=== PATIENT | female | born 1970 | race Caucasian/White ===

== ENCOUNTER 2025-01-01 20:59 | Inpatient (IN) | payer OTHER, SELFPAY ==
[2025-01-01 11:04] VITALS: BP 135/93
[2025-01-01 11:42] LABS: ALT (SGPT) 25 U/L (0-35); AST (SGOT) 22 U/L (14-36); Albumin 3.8 g/dl (3.5-5.0); Alkaline Phosphatase 105 U/L (38-126); Blood Urea Nitrogen 9 mg/dl (7-17); Calcium 9.8 mg/dl (8.4-10.2); Carbon Dioxide 26 mmol/L (22-30); Chloride 98 mmol/L (98-107); Glucose 112 mg/dl (70-99); Lipase 264 U/L (23-300); Potassium 3.6 mmol/L (3.5-5.1); Sodium 136 mmol/L (135-145); Total Bilirubin 1.2 mg/dl (0.2-1.3); Total Protein 7.3 g/dl (6.3-8.2); eGFR > 60.00
[2025-01-01 11:49] LABS: Hematocrit 37.9 % (37.0-47.0); Hemoglobin 13.5 g/dL (12.0-16.0); Mean Corp Hgb Conc. 35.6 g/dL (33.0-37.0); Mean Corpuscular Hgb 29.7 pg (27.0-31.0); Mean Corpuscular Volume 83.5 fL (81.0-99.0); Mean Platelet Volume 8.9 fL (7.4-10.4); Platelet Count 441 10^3/uL (130-400); Red Blood Cell Count 4.54 10^6/uL (4.20-5.40); Red Cell Dist. Width 13.3 % (11.5-14.5); White Blood Cell Count 15.3 10^3/uL (4.8-10.8)
[2025-01-01 12:19] VITALS: BMI 19.8
[2025-01-01 13:45] LABS: % Basophils 0.6 % (0-2); % Eosinophils 0.1 % (0-6); % Immature Granulocytes 0.8 % (0-0.5); % Monocytes 4.9 % (1.7-9.3); % Neutrophils 81.6 % (42.2-75.2); Absolute Basophils 0.1 10^3/uL (0-0.2); Absolute Immature Granulocytes 0.1 10^3/uL (0-0.05); Absolute Lymphocytes 1.8 10^3/uL (1.2-3.4); Absolute Monocytes 0.8 10^3/uL (0.1-0.6); Absolute Neutrophils 12.5 10^3/uL (1.4-6.5); Nucleated Red Blood Cells % 0 %
[2025-01-01] MEDS: NSS 1000 IV ×2 (13:51→22:20)
[2025-01-01] MEDS: ZOFRAN 4 MG IV (13:52)
[2025-01-01] MEDS: PROTONIX IV 40 MG IV (13:52)
[2025-01-01] MEDS: OMNIPAQUE 50 ML PO (13:55)
--- NOTE | 2025-01-01 14:15 | ED.GENMED ---
History of Present Illness
General
Chief Complaint: Abdominal Pain
Source: patient
Exam Limitations: none
Time Seen by Provider: 01/01/25 13:08
Nursing documentation reviewed up to this point in time: agreed with
History of Present Illness
History of Present Illness:
54 y/o F with h/o HLD
was on ozempic for weight loss recently
8 days ago was hospitalized at [facility] for generalized abd pain and nausea, pain worse with eating
i was able to review the records that pt brought with her:
she had leukocytosis 15, t biil 1.8, ct showing colitis and gastritis with small hemangioma and mild periportal edema
was on zosyn
US was neg
PPI
stool studies neg
GI consult suggested gastroentertis; pt on PPI and bentyl for cramps; they suspected gilberts as cause for t bili elevation
pt was to have outpatient f/u
she went home 3 days ago and was tolerating certain liquids, broth, etc but then last night had gatorade and got a lot of dyspepsia feeling, burning epigastric region and more pain
and she feels more bloated today
some nausea with waves of pain as well
no vomiting, fever, chills, diarrhea
pt is here becuase she felt her care at [facility] was poor
she has no GI appt currently
Phy Exam
Physical Exam
Physical Exam:
GENERAL: Alert , in no apparent distress, mildly anxious
EYE: pupils equal and reactive
NECK: Supple
ENT: o/p clr, mmm.
CARDIAC: Regular rate and rhythm .
LUNGS: Clear breath sounds bilaterally, no acute respiratory distress, no wheezes/rales/rhonchi
ABDOMEN: Soft, mild distention tender diffusely lower abdomen, no r/g, no cvat, hyperactive bowel sounds
NEUROLOGICAL: Alert and oriented, no focal neuro deficits
SKIN: Warm and dry, skin intact.
MUSCULOSKELETAL: No edema, well perfused. neg angela's sign
PSYCH: Normal and appropriate interaction.
Course
Orders/Labs/Results
Orders:
Orders
01/01/25 11:14
Complete Blood Count/With Diff Urgent
Comprehensive Metabolic Panel Urgent
Lipase Urgent
01/01/25 12:24
Electrocardiogram (*1) Urgent
Reason for Study: Chest Pain
Other Reason for Exam: epigastric pain
EKG- Treatment ONCE
01/01/25 13:31
CT Abd/pel W Iv And Oral Contr Urgent
Comment:
Reason For Exam: abd pain, bloating
0.9% Sodium Chloride 1000 ml [Nss] 1,000 ml IV BOLUS
Iohexol [Omnipaque] See Protocol PO NOW STA
Pantoprazole [Protonix IV] 40 mg IV NOW STA
01/01/25 13:38
Ondansetron Injectable [Zofran] 4 mg IV NOW STA
01/01/25 14:01
Lactic Acid Urgent
01/01/25 16:58
Morphine Sulfate 4 mg IV NOW STA
01/01/25 17:23
NG Tube [GI tube insertion- Treatment] ONCE
01/01/25 17:27
Piperacillin/Tazo 3.375 Gram [Zosyn] 3.375 gram in 50 ml IV NOW
01/01/25 17:35
Lidocaine 2% [Lidocaine Uro-Jet 2%] 1 syringe TOPICAL NOW STA
01/01/25 18:41
CR Chest Portable - 1 View Urgent
Comment:
Reason For Exam: NGT placement
Reason Study Needs to be Portable: Unable to Transport
01/01/25 20:16
Admit/Transfer Patient As Directed
Co-Sign Provider:
Level of Care: Inpatient admission
Assign to:: Medical/Surgical
Physician / Group: [email or web address]
Diagnosis: Hi grade SBO,Abnormal AP CT findings of RLQ multicystic complex
Reason for Hospitalization: Hi grade SBO, Abnormal AP CT findings of RLQ multicystic complex
Expected length of stay greater than two midnights?: Yes
ELOS- Estimated Length of Stay in days: 3
I certify the patient meets the requirements for IP care: Yes
01/01/25 20:18
Code Status As Directed
Resuscitation Status: Full Code
01/01/25 20:41
HYDROmorphone [Dilaudid] 0.25 mg IV Q3HPRN PRN
01/01/25 21:49
0.9% Sodium Chloride 1000 ml [Nss] 1,000 ml IV 80 mls/hr
Bisacodyl [Dulcolax] 10 mg RECTAL [id number] PRN
Docusate W/Senna [Senokot-S] 1 tablet PO BIDPRN PRN
Ondansetron Injectable [Zofran] 4 mg IV Q6HPRN PRN
Polyethylene Glycol Powder [Miralax] 17 grams PO DAILYPRN PRN
01/01/25 21:49
SURGICAL CONSULT Routine
Consulting Provider: Shan Savage
Was physician already notified: Yes
Reason for consult: Hi grade SBO,Abnormal AP CT findings of RLQ multicystic complex
Activity As Directed
Activity Level: With Assistance
Intake/ Output As Directed
Frequency: Per unit guidelines
Pneumatic Compression Sleeves As Directed
Type: Knee high
Vital Signs As Directed
Frequency: Per unit guidelines
Weight As Directed
Frequency: Daily
DX Deep Vein Thrombosis Video Routine
01/02/25 02:00
Piperacillin/Tazo 3.375 Gram [Zosyn] 3.375 gram in 50 ml IV Q6H
01/02/25 Breakfast
NPO
Allow oral meds: No
Allow clear liquids: Sips of Clears
NPO with Ice Chips: Yes
01/02/25 06:14
Complete Blood Count/With Diff IN AM
Comprehensive Metabolic Panel IN AM
Abnormal Lab Results
01/01/25
11:14
WBC 15.3 H 10^3/uL
(4.8-10.8)
Plt Count 441 H 10^3/uL
(130-400)
Abs Immat Gran (auto) 0.1 H 10^3/uL
(0-0.05)
Absolute Neuts (auto) 12.5 H 10^3/uL
(1.4-6.5)
Absolute Monos (auto) 0.8 H 10^3/uL
(0.1-0.6)
Immature Gran % 0.8 H %
(0-0.5)
Neutrophils % 81.6 H %
(42.2-75.2)
Lymphocytes % 12.0 L %
(20.5-51.1)
Glucose 112 H mg/dl
(70-99)
01/01/25 11:14
01/01/25 11:14
Vital Signs
Initial and Last Documented VS:
Initial Vital Signs
Temp Pulse Resp BP Pulse Ox
36.9 C 100 16 135/93 99
01/01/25 11:04 01/01/25 11:04 01/01/25 11:04 01/01/25 11:04 01/01/25 11:04
Last Documented Vital Signs
Temp Pulse Resp BP Pulse Ox
36.4 C 93 16 141/89 97
01/02/25 23:56 01/02/25 23:56 01/02/25 23:56 01/02/25 23:56 01/02/25 23:56
MDM/Problems Addressed
Differential Diagnosis Includes:
sbo, ileus, gastritis, colitis,
MDM/Problems Addressed:
rekha incollingo
54 y/o F
healthy
went to [facility] 8 days ago for gen abd pain nausea
had CT with IV constrast (i have the report) suggestive of gastritis/colitis; there was some mention of appendix calcifications but no dilation
she was hospitalized for 5 days, spiked fever, given zosyn, fever resolved; they all presume had gastroenteritis
went home and had inc inability to tolerate liquids; no vomiting just pain, distension
she has SBO on CT and what is suspicious for appendiceal abscess versus mass versus volvulus
In the right lower quadrant
I spoke with Dr. Savage who is colorectal surgery on-call for general surgery who will evaluate the patient but asked that she be placed on hospitalist service, IV antibiotics, n.p.o. I placed an NG tube, reviewed the chest x-ray independently
showed that the tip of the tube was in the stomach
*Critical Care Note
Total Time (30-74mins, 75-104mins- exclusive of procedures): Not Applicable
ED Attending Note
-
Portions of this chart may have been created with voice recognition software.� Occasional wrong word or��sound alike� substitutions may have occurred due to the inherent limitations of voice recognition software.
Discharge Plan
Departure
Patient Disposition: Admit
Date of Disposition: 01/01/25
Time of Disposition: 17:59
Admit to: Med/Surg
Presentation/result/management discussed w/ accepting MD/DO: Hospitalist
Condition: Fair
Covid-19: Not Applicable
Discharge Problem:
Small bowel obstruction
Interventions
Interventions:
*General Assessment Last Done: 01/01/25 11:04
ED- Fall Risk Assessment Last Done: 01/01/25 21:45
*Nursing Disposition Last Done: 01/01/25 21:45
TE-Jctadc-Igucmwlmht Assessment Last Done: 01/01/25 12:20
Discharge Date and Time
Discharge Date/Time: 01/01/25 21:46
[2025-01-01 16:00] VITALS: BP 144/92
[2025-01-01] MEDS: MORPHINE SULFATE 4 MG IV (17:01)
[2025-01-01] MEDS: LIDOCAINE URO-JET 2% 1 SYRINGE TOPICAL (19:30)
--- NOTE | 2025-01-01 20:01 | HPS.HSE ---
Family Physician
-
Family Physician: BARBIE Lima
Chief Complaint
-
abd pain and nausea, pain worse with eating
History of Present Illness
HPI
54F HX HLD, recently started on Ozempic for weight loss seen at ER:
- 8 days ago she was hospitalized at [facility] for generalized abd pain and nausea, pain worse with eating
- OSH chart reviewed:
leukocytosis 15
TB 1.[address] AP shows colitis and gastritis with small hemangioma and mild periportal edema treated with Zosyn
Unremarkable US
NEG stool studies
GI consult suggested gastroentertis: Rx with PPI and bentyl for cramps
DC home 3 days ago and had outpatient f/u : but no OP GI appt currently
At Home:
she was tolerating certain liquids, broth
last night had Gatorade and got a lot of dyspepsia feeling, burning epigastric region and more pain
feels more bloated today
POS nausea with waves of pain as well.
No vomiting, fever, chills, diarrhea
Medical History
Past Medical History
Past Medical History: Reports Hypercholesterolemia
Past Surgical History: Reports None
Social History
Tobacco: Non-smoker
Alcohol: None
Family History
Family History: Not pertinent
Allergies / Home Medications
Allergies reflects when Allergies were last updated in [facility].
Home Medications with original date entered in [facility]
Allergy/Medication List:
Allergies
Allergy/AdvReac Type Severity Reaction Status Date / Time
lactose Allergy Unknown Verified 01/01/25 11:06
soy Allergy Unknown Verified 01/01/25 11:06
Home Medications
dicyclomine 20 mg tablet 20 mg PO QID 01/01/25
magnesium oxide 1,000 mg PO HS 01/01/25
pantoprazole 40 mg tablet,delayed release 40 mg PO DAILY 01/01/25
Review of Systems
-
Constitutional: Reports No Symptoms
EENT: Reports No Symptoms
Respiratory: Reports No Symptoms
Cardiac: Reports No Symptoms
Abdomen/GI: Reports Abdominal Pain, Nausea and Pain; Denies Vomiting
: Reports No Symptoms
Musculoskeletal: Reports No Symptoms
Skin: Reports No Symptoms
Neurological: Reports No Symptoms
Endocrine: Reports No Symptoms
Hematologic/Lymphatic: Reports No Symptoms
Psych: Reports No Symptoms
Physical Exam
Vital Signs
Vital Signs
Temp Pulse Resp BP Pulse Ox
98.5 F 97 18 144/92 99
01/01/25 11:04 01/01/25 16:00 01/01/25 16:00 01/01/25 16:00 01/01/25 16:00
Physical Exam
General: Well Developed, Well Nourished and No Apparent Distress
HEENT: NormoCephalic, Moist mucous membranes and Atraumatic
Respiratory: Clear
Cardiac: S1/S2 and Regular Rhythm; No Murmur or Rub
GI: Distended
Rectal: Deferred by Provider
Musculoskeletal: No Clubbing, No Cyanosis and No Edema
Skin: No Rash
Neuro: AO x 3 and Nonfocal/grossly intact
Psych: Calm
Laboratory Results
-
01/01/25 11:14
01/01/25 11:14
Laboratory Results
Lactic Acid 1.0 mmol/L (0.7-2.0) 01/01/25 14:01
Total Bilirubin 1.2 mg/dl (0.2-1.3) 01/01/25 11:14
AST 22 U/L (14-36) 01/01/25 11:14
ALT 25 U/L (0-35) 01/01/25 11:14
Alkaline Phosphatase 105 U/L (38-126) 01/01/25 11:14
Lipase 264 U/L (23-300) 01/01/25 11:14
Data Reviewed
-
CT Scan: Report Reviewed by me
Lab Data: Labs Reviewed by me
Impression/Plan
-
Reviewed VS: unremarkable
Vital Signs
Temp Pulse Resp BP Pulse Ox
98.5 F 97 18 144/92 99
01/01/25 11:04 01/01/25 16:00 01/01/25 16:00 01/01/25 16:00 01/01/25 16:00
Abnormal Lab Results
01/01/25
11:14
WBC 15.3 H
Plt Count 441 H
Abs Immat Gran (auto) 0.1 H
Absolute Neuts (auto) 12.5 H
Absolute Monos (auto) 0.8 H
Immature Gran % 0.8 H
Neutrophils % 81.6 H
Lymphocytes % 12.0 L
Glucose 112 H
CXR: Nasogastric tube with tip in stomach.
CT AP
- suspicious for high-grade distal small bowel obstruction with dilated fluid-filled loops of small bowel and markedly limited evaluation of small bowel with only distended stomach and proximal small bowel opacified with oral contrast as well as
marked paucity of fat throughout the abdomen and true pelvis.
- 'Multicystic' complex predominantly fluid density with air bubbles and thickened periphery in the right lower quadrant measuring 5.7 x 7.3 x 7.6 cm also containing some high high attenuation density. EVALUATION MARKEDLY LIMITED DUE TO PAUCITY OF
INTRA-ABDOMINAL FAT AND LACK OF ORAL CONTRAST OPACIFICATION).
- Findings could represent an abscess (surrounded by loops of bowel) such as a periappendiceal or other abscess abscess although difficult to confirm.
- Appendiceal mucocele with superimposed infection and small bowel obstruction also possible.
- Atypical tumor with possible superimposed infection, less likely intestinal volvulus are some other differential diagnostic possibilities. Surgical consultation recommended.
- Few small right lower quadrant mesenteric lymph nodes measuring up to 1.2 cm, cannot differentiate inflammatory/infectious etiology versus malignancy.
- 0.5 cm ill-defined low-attenuation right lobe hepatic lesion, too small to characterize.
NO PRIOR hospitalist admission
ASSESSMENT & PLAN
High-grade distal SBO : inability tolerate liquids, no vomiting , abdominal pain with distension
Abnormal CT findings of RLQ multicystic complex
DDX: Abscess, Appendiceal mucocele with superimposed infection, Atypical tumor with possible superimposed infection
- Pelvic US
- NPO and IVF
- Empiric IV Zosyn
- NGT for decompression
- GS consulted
Current BMI 19-20
HX Ozempic use since June 2024 till Nov 2024 prior to to admission at [facility]
- DC'd Ozempic INTERVENTIONAL RADIOLOGY RN
DVT Px: SCD
Full code
IP MS
--- NOTE | 2025-01-01 20:22 | CON.CRS ---
Consultation
-
Date/Time Consultation Requested: 01/01/2025 @ 17:30
Date/Time Consultation Performed: 01/01/2025 @ 18:30
Requesting Provider: Nan Dumont PA-C
Performing Provider: Juan David Savage MD
Reason for Consultation: Abdominal pain
Medical History
-
Chief Complaint: Abdominal pain
History of Present Illness:
54-year-old female recently discharged from [facility] with 'gastroenteritis' who presents with persistent abdominal pain and distention. Approximately 2 weeks ago the symptoms developed prompting her to go to the ED. A CT scan revealed
gastritis and colitis as well as appendicoliths. She had a WBC of 15k and was treated with Zosyn. She was having some loose stools but no vomiting. She was seen by GI and treated with a PPI and Bentyl. Stool studies were negative. She had similar
symptoms 2 years ago and was told she had colitis. A follow-up colonoscopy was reportedly normal. Her bowels are typically regular and she has not undergone any previous abdominal surgery. She has normal menses and denies any urinary symptoms.
After discharge she was drinking some fluids but was having reflux. She feels bloated and there is generalized discomfort. She hasn't vomited and denies any fevers/chills. Her last bowel movement was yesterday and it was small. She hasn't passed
flatus since yesterday.
Here in our ED she is afebrile with normal vital signs (pulse 104, BP 149/104). She appears non-toxic and just underwent placement of an NGT with the return of ~1 liter of thin, green-tinged fluid. Her abdomen is slightly distended and nontender.
There is no tympany. Her WBC is 15.2 and her electrolytes and renal function are normal.
A CT scan of the abdomen and pelvis with contrast reveals a distended stomach and loops of small bowel with retained contrast. In the right lower quadrant is a complex multicystic area measuring 5.7 x 7.3 x 7.6 cm. There is a slightly thickened wall
and a ? appendicolith. The oral contrast has not reached the area and the appendix is not visualized. I personally reviewed the CT with IR.
Past Medical History
Past Medical History: Hypercholesterolemia
Past Surgical History: None
Social History
Tobacco: Non-Smoker
Alcohol: None
Employment: Employed
Family History
Family History: Reviewed & Not Pertinent
Allergies / Home Medications
Allergy/AdvReac Type Severity Reaction Status Date / Time
lactose Allergy Unknown Verified 01/01/25 11:06
soy Allergy Unknown Verified 01/01/25 11:06
�Medication �Instructions �Recorded �Confirmed �Type
dicyclomine 20 mg tablet 20 mg PO QID 01/01/25 01/01/25 History
magnesium oxide 1,000 mg PO HS 01/01/25 01/01/25 History
pantoprazole 40 mg tablet,delayed 40 mg PO DAILY 01/01/25 01/01/25 History
release
Review of Systems
-
History Source: Patient
All other systems: Negative unless noted
A 10 point review of systems was completed, and was negative except as per HPI.
Physical Exam
Vital Signs
Temp 98.5 F 01/01/25 11:04
Pulse 97 01/01/25 16:00
Resp Rate 18 01/01/25 16:00
Blood pressure 144/92 01/01/25 16:00
SaO2 99 01/01/25 16:00
12/31/24 01/01/25 01/02/25
06:59 06:59 06:59
Actual Weight 50.6 kg
Body Mass Index (BMI) 19.8
Lab Results / Allergies
01/01/25 11:14
01/01/25 11:14
WBC 15.3 10^3/uL (4.8-10.8) H 01/01/25 11:14
Hgb 13.5 g/dL (12.0-16.0) 01/01/25 11:14
Hct 37.9 % (37.0-47.0) 01/01/25 11:14
Plt Count 441 10^3/uL (130-400) H 01/01/25 11:14
Abs Immat Gran (auto) 0.1 10^3/uL (0-0.05) H 01/01/25 11:14
Neutrophils % 81.6 % (42.2-75.2) H 01/01/25 11:14
Allergy/AdvReac Type Severity Reaction Status Date / Time
lactose Allergy Unknown Verified 01/01/25 11:06
soy Allergy Unknown Verified 01/01/25 11:06
Physical Exam
General: Well Developed, Well Nourished, No Apparent Distress and Comfortable
HEENT: Anicteric
Respiratory: Clear
Cardiac: Regular Rhythm
GI: Soft, Non Tender and Distended
Musculoskeletal: No Edema
Neuro: Awake and Alert
Data Reviewed
-
CT Scan: Image Personally Visualized and interpreted, Report Reviewed by me, Discussed with Physician, Discussed with Patient and Discussed with Family
Labs: Labs Reviewed by me, Discussed with Patient and Discussed with Family
Old Records: Reviewed
Total Time Spent with Patient (in minutes): 62
Assessment / Plan
-
Small bowel obstruction with a complex mass/abscess in the right lower quadrant. Visualization on the CT is somewhat limited due to the lack of progression of the contrast and the paucity of fat.
I reviewed the current findings and discussed the treatment options with the patient and her sisters. I suspect she has an abscess from perforated appendicitis. We discussed nonoperative management versus surgery. I do not feel there is an
indication for emergency surgery at this time. I recommend a repeat CT of the pelvis and hopefully the contrast will propagate to the area. If it appears to be an abscess, the plan is for an aspiration in IR and a possible drain. If it is not
drainable, or if her condition does not improve or worsen, surgery is indicated. At this time it would be an open incision, drainage of the abscess if present, and a possible bowel resection. I reviewed the risks and benefits of each. The plan is to
continue with the NGT and antibiotics with a repeat CT of the pelvis. All questions answered and she is in agreement with the plan.
[2025-01-01] MEDS: ZOSYN 50 IV (20:29)
[2025-01-01 20:37] VITALS: BP 149/104
[2025-01-01] MEDS: DILAUDID 0.25 MG IV (20:59)
[2025-01-01 21:57] VITALS: BP 133/94
[2025-01-01 21:58] VITALS: BMI 19.2
[2025-01-01 23:50] VITALS: BP 126/81
[2025-01-02] MEDS: ZOSYN 50 IV ×4 (01:19→21:28)
[2025-01-02] MEDS: BENADRYL 25 MG IV (02:10)
[2025-01-02] MEDS: DILAUDID 0.25 MG IV ×4 (04:20→16:05)
[2025-01-02 06:00] VITALS: BMI 19.1
[2025-01-02 07:00] VITALS: BP 151/97
[2025-01-02] MEDS: OMNIPAQUE 50 ML PO (07:52)
[2025-01-02 08:23] LABS: Hematocrit 37.1 % (37.0-47.0); Hemoglobin 12.9 g/dL (12.0-16.0); Mean Corp Hgb Conc. 34.8 g/dL (33.0-37.0); Mean Corpuscular Volume 86.3 fL (81.0-99.0); Platelet Count 437 10^3/uL (130-400); Red Cell Dist. Width 13.6 % (11.5-14.5); White Blood Cell Count 18.8 10^3/uL (4.8-10.8)
[2025-01-02 08:25] LABS: ALT (SGPT) 18 U/L (0-35); AST (SGOT) 18 U/L (14-36); Albumin 3.3 g/dl (3.5-5.0); Alkaline Phosphatase 101 U/L (38-126); Blood Urea Nitrogen 15 mg/dl (7-17); Calcium 8.9 mg/dl (8.4-10.2); Carbon Dioxide 24 mmol/L (22-30); Chloride 101 mmol/L (98-107); Estimated Creatinine Clearance 82 ml/min; Glucose 88 mg/dl (70-99); Potassium 3.5 mmol/L (3.5-5.1); Sodium 137 mmol/L (135-145); Total Protein 6.3 g/dl (6.3-8.2); eGFR > 60.00
[2025-01-02] MEDS: NSS 1000 IV (10:37)
[2025-01-02 10:51] LABS: % Basophils 0.5 % (0-2); % Eosinophils 0.1 % (0-6); % Immature Granulocytes 0.9 % (0-0.5); % Lymphocytes 7.8 % (20.5-51.1); % Monocytes 4.4 % (1.7-9.3); % Neutrophils 86.3 % (42.2-75.2); Absolute Basophils 0.1 10^3/uL (0-0.2); Absolute Immature Granulocytes 0.2 10^3/uL (0-0.05); Absolute Lymphocytes 1.5 10^3/uL (1.2-3.4); Absolute Monocytes 0.8 10^3/uL (0.1-0.6); Absolute Neutrophils 16.2 10^3/uL (1.4-6.5); Nucleated Red Blood Cells % 0 %
[2025-01-02] MEDS: ZOFRAN 4 MG IV (12:15)
--- NOTE | 2025-01-02 12:41 | W.PN.CRS1 ---
Today's Communication / Plan
-
An attempt at percutaneous drainage today.
Continue NG tube and antibiotics.
Assessment/Plan
-
Distal small bowel obstruction most likely secondary to an appendiceal abscess.
She is clinically stable and remains afebrile. White count is slightly elevated at 18.8. Repeat CT scan of the pelvis is essentially unchanged. Unfortunately, the contrast did not propagate to the area.
I reviewed the current findings with the patient discussed treatment options including continued nonoperative management, and attempted percutaneous drainage, or surgery. Without treatment the condition is unlikely to improve. The risk of
percutaneous drainage include injury to other structures as the abscess is centralized. There is also a possibility that her condition might not improve with drainage. If it can be successfully drained, it converts an emergency operation which
could involve a bowel resection to a semielective procedure with an appendectomy in the future. We discussed the risks and benefits of each and the plan is for an attempt at percutaneous drainage. Continue antibiotics for now.
Subjective Data
Subjective Data
Date of Service: January 02, 2025
She has minimal abdominal discomfort. Denies any nausea. She has not passed any flatus or stool.
Objective Data
-
Vital Signs
Temp Pulse Resp BP Pulse Ox
98.9 F 96 20 151/97 97
01/02/25 07:00 01/02/25 07:00 01/02/25 07:00 01/02/25 07:00 01/02/25 08:00
Intake & Output
01/01/25 01/02/25 01/03/25
06:59 06:59 06:59
Intake Total 50 / 50
Output Total 1300 / 1300
Balance -1300 / -1250 50 / 50
Intake:
IV piggybacks 50 / 50
Output:
Gastrointestinal tube output ( 1300 / 1300
Total)
Other:
Number of approximated MODERATE 3
amounts of urine
Lab Results
01/02/25 06:14
01/02/25 06:14
Physical Exam
-
General: No Acute Distress
Abdomen: Soft, Distended (mild) and Non Tender
Extremities: No Edema
--- NOTE | 2025-01-02 13:30 | W.PN.HOSP.TC ---
Today's Communication/Plan
-
Assessment / Plan
Assessment / Plan
NAD
Scleral Anicteric
MMM, NGT hooked to wall suction, 200 cc of dark material in canister
No JVD
CTABL
RRR, S1/S2
Soft, distended, mild tenderness right lower quad, BS+
Warm, Dry
AAOx3
High-grade distal SBO complicated by mass/appendiceal abscess
Continue NGT
Colorectal surgery following
IV antibiotic
Repeat CT abdomen pelvis 7.6 cm complex collection in the right lower quadrant, essentially unchanged leading consideration would be an abscess secondary to perforated appendicitis, a necrotic malignant mass remains an alternative possibility.
Persistent small bowel obstruction
Decision needs to be made about percutaneous IR guided drainage versus ex lap and operative management with surgery
NPO
Sepsis, source intra-abdominal, white count tachycardic respiratory rate
IV antibiotic
Unfortunately no blood cultures were obtained
Will order 2 sets now however this has likely affected the yield as she has been admitted for approximately 24 hours
Anticipated Discharge: > 48 hours
Subjective/Interval History
-
Date of Service: January 02, 2025
Seen and examined. No new complaints. No acute overnight events.
NGT remains in place. SBO with complex mass versus abscess/appendiceal abscess. Right lower quadrant.
Continue NGT and antibiotics
Objective Data
-
Labs:
Laboratory Results
01/02/25
06:14
WBC 18.8 H
Hgb 12.9
Hct 37.1
Plt Count 437 H
Sodium 137
Potassium 3.5
Chloride 101
Carbon Dioxide 24
BUN 15
Creatinine 0.6
Glucose 88
Calcium 8.9
Total Bilirubin 1.0
AST 18
ALT 18
Alkaline Phosphatase 101
Vital Signs:
Vital Signs
Temp Pulse Resp BP Pulse Ox
98.9 F 96 20 151/97 97
01/02/25 07:00 01/02/25 07:00 01/02/25 07:00 01/02/25 07:00 01/02/25 08:00
I&O
01/01/25 01/02/25 01/03/25
06:59 06:59 06:59
Intake Total 50 / 50
Output Total 1300 / 1300
Balance -1300 / -1250 50 / 50
[2025-01-02 13:54] VITALS: BP 148/92; BP_SYST 93
[2025-01-02 15:00] VITALS: BP 134/92
--- NOTE | 2025-01-02 15:04 | W.PN.UPDATE ---
Update Note
Progress Note Update
Unfortunately there is no safe window to drain the abscess. The plan is for possible surgery tomorrow if the obstruction continues. The operation will involve a laparotomy and drainage of the abscess, possible appendectomy, possible bowel resection.
Risks include, but are not limited to, bleeding, infection, adhesions, hernias, injury to other structures, DVT, cardiopulmonary complications, and the risks of anesthesia. Further surgery might be needed. I also reviewed the typical recovery and
functional results. All questions answered.
[2025-01-02 15:05] VITALS: BP 128/89
--- NOTE | 2025-01-02 16:02 | CM ---
print project manager reviewed patient's chart and met with patient and patient lives with her spouse in as multilevel home, patient is independent with adl's and ambulation, no dme, patient drives.
PCP: Dr. Herrera
Pharmacy: [facility].
Plan; Home when stable.
[2025-01-02 16:20] LABS: INR 1.17; PT 15.2 Sec (11.4-14.6)
[2025-01-02 16:21] LABS: APTT 28.5 Sec (23.4-35.0)
[2025-01-02 23:56] VITALS: BP 141/89
[2025-01-03] VITALS (10 sets, daily range): BP systolic 80–143; BP diastolic 72–89; BMI 19.3
[2025-01-03] MEDS: NSS 1000 IV ×3 (01:00→23:43)
[2025-01-03] MEDS: ZOSYN 50 IV ×4 (01:01→19:50)
[2025-01-03 07:34] LABS: Hematocrit 33.9 % (37.0-47.0); Hemoglobin 11.6 g/dL (12.0-16.0); Mean Corp Hgb Conc. 34.2 g/dL (33.0-37.0); Mean Corpuscular Hgb 29.7 pg (27.0-31.0); Mean Corpuscular Volume 86.9 fL (81.0-99.0); Mean Platelet Volume 8.9 fL (7.4-10.4); Platelet Count 426 10^3/uL (130-400); Red Cell Dist. Width 13.5 % (11.5-14.5); White Blood Cell Count 9.2 10^3/uL (4.8-10.8)
[2025-01-03 07:56] LABS: Blood Urea Nitrogen 23 mg/dl (7-17); Calcium 8.7 mg/dl (8.4-10.2); Carbon Dioxide 26 mmol/L (22-30); Chloride 103 mmol/L (98-107); Estimated Creatinine Clearance 83 ml/min; Glucose 95 mg/dl (70-99); Potassium 3.5 mmol/L (3.5-5.1); Sodium 140 mmol/L (135-145); eGFR > 60.00
--- NOTE | 2025-01-03 10:02 | W.PN.CRS1 ---
Today's Communication / Plan
-
OR this am.
Assessment/Plan
-
Distal small bowel obstruction most likely secondary to an appendiceal abscess.
She is clinically stable and remains afebrile. White count is now normal but she is still obstructed. I reviewed the treatment options again including continued nonoperative management versus surgery, and she wishes for surgery. The plan is for an
exploratory laparotomy with drainage of the abscess, possible appendectomy and a possible bowel resection. I reviewed the risks and typical recovery again, all questions answered and informed consent obtained.
Subjective Data
Subjective Data
Date of Service: January 03, 2025
Overall she feels better and is having some 'hunger pains.' Still no bowel movements or flatus.
Objective Data
-
Vital Signs
Temp Pulse Resp BP Pulse Ox
98.3 F 90 18 125/76 97
01/03/25 07:47 01/03/25 07:47 01/03/25 07:47 01/03/25 07:47 01/03/25 07:47
Intake & Output
01/02/25 01/03/25 01/04/25
06:59 06:59 06:59
Intake Total 3520 / 3520
Output Total 1300 / 1300 1900 / 1900
Balance -1300 / -1250 1620 / 1620
Intake:
Oral fluids 180 / 180
IV fluids (Total) 1600 / 1600
IV piggybacks 250 / 250
Amount instilled into GI Tube ( 1490 / 1490
Total)
[place] Sump 1490 / 1490
Output:
Gastrointestinal tube output ( 1300 / 1300 1900 / 1900
Total)
[place] S[place] 1900 / 1900
Other:
Number of approximated MODERATE 4
amounts of urine
Number of approximated LARGE 1
amounts of urine
Lab Results
01/03/25 06:17
01/03/25 06:17
Physical Exam
-
General: No Acute Distress
Abdomen: Soft, Distended and Non Tender
Extremities: No Calf Tenderness
--- NOTE | 2025-01-03 10:25 | W.PN.HOSP.TC ---
Today's Communication/Plan
-
For the OR with surgery
-Planned with laparotomy and drainage of abscess possible appendectomy and bowel resection
-NPO
-Follow up on IOP culture
Continue zosyn, de-escalate antibiotcs based on culture data
Assessment / Plan
Assessment / Plan
NAD
Scleral Anicteric
MMM, NGT hooked to wall suction, 200 cc of dark material in canister
No JVD
CTABL
RRR, S1/S2
Soft, distended, mild tenderness right lower quad, BS+
Warm, Dry
AAOx3
High-grade distal SBO complicated by mass/appendiceal abscess
-Repeat CT abdomen pelvis completed. Evaluated by IR and surgery.
--No safe window for IR guided percutaneous drainage of abscess.
-- Agreeable to surgery
----Plan for laparotomy and drainage of abscess possible appendectomy and bowel resection
N.p.o.
IV fluids
Sepsis, source intra-abdominal, white count tachycardic respiratory rate
IV antibiotic with Zosyn
Unfortunately no blood cultures were obtained
Will order 2 sets now however this has likely affected the yield as she has been admitted for approximately 24 hours
Anticipated Discharge: > 48 hours
Subjective/Interval History
-
Date of Service: January 03, 2025
Seen and examined. No new complaints. No acute overnight events.
Evaluated her and PACU preoperatively. NGT remains in however. Clamped.
Denied any new complaints.
Objective Data
-
Labs:
Laboratory Results
01/03/25
06:17
WBC 9.2
Hgb 11.6 L
Hct 33.9 L
Plt Count 426 H
Sodium 140
Potassium 3.5
Chloride 103
Carbon Dioxide 26
BUN 23 H
Creatinine 0.6
Glucose 95
Calcium 8.7
Vital Signs:
Vital Signs
Temp Pulse Resp BP Pulse Ox
98.3 F 90 18 125/76 97
01/03/25 07:47 01/03/25 07:47 01/03/25 07:47 01/03/25 07:47 01/03/25 07:55
I&O
01/02/25 01/03/25 01/04/25
06:59 06:59 06:59
Intake Total 3520 / 3520
Output Total 1300 / 1300 1900 / 1900
Balance -1300 / -1250 1620 / 1620
--- NOTE | 2025-01-03 12:55 | W.IMMPOSTOP ---
Surgical Immed Post Op Note
-
Primary Surgeon: Juan David Savage MD
Assisting Surgeon: Nubia VALENTIN, DISCHARGE PLANNER-S
Pre-op Diagnosis: Intraabdominal abscess, ruptured appendicitis
Post-op Diagnosis: Intraabdominal abscess, ruptured appendicitis
Procedure Performed: Exploratory laparotomy with drainage of right lower quadrant intraabdominal abscess, serosal repair, abdominal washout
Anesthesia Type: General
Specimen / Cultures: Anaerobic and aerobic cultures from abscess cavity
Estimated Blood Loss: 40ml
Complications: none
Operative Findings: Abdominal abscess in RLQ at site of appendix which was perforated and macerated to the extent that no tissue was remaining for true resection.
Some very minimal localized fecal contamination near the site of prior appendiceal attachment, serosal repair preformed.
Abdominal washout with placement of 19Fr Ishan drain into the right lower quadrant
Staple closure to skin, Aquacel dressing applied
--- NOTE | 2025-01-03 14:00 | PTCARENOTE ---
Received patient from PACU. Patient s/p ex-lap with abdominal wash-out, abdominal abscess drainage. Still with L Nare DHT to continuous -80 suction, with bilious output. Midline aquacel with minimal drainage on dressing, RLQ SUDHAKAR drain with moderate
amount of output (60mL here, 160 reported out in PACU - > discussed with Nubia Foster - output irrigation from surgery). Pain acceptable, 4/10 more localized to RLQ.
[2025-01-03] MEDS: DILAUDID 0.25 MG IV ×2 (14:05→15:33)
[2025-01-03] MEDS: CHLORASEPTIC/SORE THROAT SPRAY 1 SPRAY PO (15:20)
[2025-01-03] MEDS: OFIRMEV 100 IV ×2 (17:40→23:40)
[2025-01-03] MEDS: DILAUDID 0.5 MG IV (19:07)
[2025-01-03] MEDS: TORADOL 10 MG IV (21:09)
[2025-01-03] MEDS: DILAUDID 1 MG IV (22:02)
[2025-01-04] MEDS: ZOSYN 50 IV ×4 (02:13→19:52)
[2025-01-04 03:10] VITALS: BP 115/76
[2025-01-04] MEDS: DILAUDID 1 MG IV ×5 (05:30→23:55)
[2025-01-04 06:00] VITALS: BMI 19.6
[2025-01-04] MEDS: OFIRMEV 100 IV ×2 (06:29→12:16)
[2025-01-04 06:38] LABS: Hematocrit 33.6 % (37.0-47.0); Hemoglobin 11.9 g/dL (12.0-16.0); Mean Corp Hgb Conc. 35.4 g/dL (33.0-37.0); Mean Corpuscular Hgb 30.7 pg (27.0-31.0); Mean Corpuscular Volume 86.6 fL (81.0-99.0); Mean Platelet Volume 9.1 fL (7.4-10.4); Platelet Count 492 10^3/uL (130-400); Red Blood Cell Count 3.88 10^6/uL (4.20-5.40); Red Cell Dist. Width 13.2 % (11.5-14.5); White Blood Cell Count 15.8 10^3/uL (4.8-10.8)
[2025-01-04 06:41] LABS: Blood Urea Nitrogen 16 mg/dl (7-17); Calcium 8.3 mg/dl (8.4-10.2); Carbon Dioxide 24 mmol/L (22-30); Chloride 103 mmol/L (98-107); Estimated Creatinine Clearance 84 ml/min; Glucose 96 mg/dl (70-99); Magnesium 2.2 mg/dl (1.6-2.3); Potassium 3.4 mmol/L (3.5-5.1); Sodium 137 mmol/L (135-145); eGFR > 60.00
[2025-01-04 07:10] VITALS: BP 110/73
[2025-01-04] MEDS: PROTONIX IV 40 MG IV (08:07)
[2025-01-04] MEDS: NSS (PRESERVATIVE FREE) 10 ML IV (08:07)
[2025-01-04] MEDS: KCL 1020 MEQ IV ×2 (08:24→21:40)
[2025-01-04] MEDS: NSS IV (08:24)
--- NOTE | 2025-01-04 10:25 | W.PN.CRS1 ---
Today's Communication / Plan
-
maintain ngt
Lovenox
continue IV antibiotics
maintain surgical drain
Assessment/Plan
-
POD#1 Exploratory laparotomy with drainage of right lower quadrant intraabdominal abscess, serosal repair, abdominal washout
WBC: 15.8 (9.2), Hgb 11.9 (11.6)
Vitals normal, afebrile
NGT output: 495ml
OR drain output: 760ml
-Maintain SUDHAKAR drain today, await bowel function
-OR cultures pending
-Continue IVFs
-D/C fong
-Continue IV zoysn
-DVT prophylaxis: TEDs/SCDS, Lovenox
-Pain control: Tylenol/Toradol standing, Dilaudid PRN
Subjective Data
Procedure
01/03/2025- Exploratory laparotomy with drainage of right lower quadrant intraabdominal abscess, serosal repair, abdominal washout
Subjective Data
Date of Service: January 04, 2025
Patient states she has no nausea or vomiting. She has some pain that resolves with pain medication. She has had no gas or bowel movements yet. She does not feel bloated.
Objective Data
-
Vital Signs
Temp Pulse Resp BP Pulse Ox
98.2 F 93 16 110/73 97
01/04/25 07:10 01/04/25 07:10 01/04/25 07:10 01/04/25 07:10 01/04/25 07:10
Intake & Output
01/03/25 01/04/25 01/05/25
06:59 06:59 06:59
Intake Total 3520 / 3520 2450 / 2450
Output Total 1900 / 1900 2430 / 2430
Balance 1620 / 1620 20 / 20
Intake:
Oral fluids 180 / 180 360 / 360
IV fluids (Total) 1600 / 1600 1840 / 1840
IV piggybacks 250 / 250 250 / 250
Amount instilled into GI Tube ( 1489
Total)
[place] Sump 1489
Output:
Drain Output (Total) 760 / 760
Right Lower Abdomen 760 / 760
Gastrointestinal tube output ( 1899 495 / 495
Total)
[place] Sump 1899 495 / 495
Urine, [place] 1175 / 1175
Other:
Number of approximated MODERATE 4
amounts of urine
Number of approximated LARGE 1
amounts of urine
Lab Results
01/04/25 05:28
01/04/25 05:28
Physical Exam
-
General: No Acute Distress and AOx3
Abdomen: Soft, Non Distended, Non Tender and Other (SUDHAKAR drain serous )
Skin: Warm and Dry
Incision: Clear, Dry, Intact
[2025-01-04 10:41] VITALS: BMI 19.6
--- NOTE | 2025-01-04 10:42 | W.PN.HOSP.TC ---
Today's Communication/Plan
-
IVF
IV abx
cont ngt
monitor output
replete lytes
ID input
Assessment / Plan
Assessment / Plan
#High-grade distal SBO complicated by mass/appendiceal abscess
Repeat CT abdomen pelvis completed. Evaluated by IR and surgery.
No safe window for IR guided percutaneous drainage of abscess.
Status post exploratory laparotomy with drainage of right lower quadrant intra-abdominal abscess, serosal repair, abdominal washout.
SUDHAKAR drain placement
Continue with NG tube
Continue with IV fluid KCL +LR
N.p.o.
IV fluids
pain control
PPI
#Sepsis, source intra-abdominal, white count tachycardic respiratory rate-poa
IV antibiotic with Zosyn
Unfortunately no blood cultures were obtained on admission
Follow-up in the wound culture data taken in OR
Follow-up on the blood culture data
Bump in wbc noted.
Will ask ID for input
#Hypokalemia
replete prn
DVT ppx-lovenox
Full code
Anticipated Discharge: > 48 hours
Subjective/Interval History
-
Date of Service: January 04, 2025
denies abd pain
states of discomfort due to NGT
Objective Data
-
Labs:
Laboratory Results
01/04/25
05:28
WBC 15.8 H
Hgb 11.9 L
Hct 33.6 L
Plt Count 492 H
Sodium 137
Potassium 3.4 L
Chloride 103
Carbon Dioxide 24
BUN 16
Creatinine 0.6
Glucose 96
Calcium 8.3 L
Vital Signs:
Vital Signs
Temp Pulse Resp BP Pulse Ox
98.2 F 93 16 110/73 97
01/04/25 07:10 01/04/25 07:10 01/04/25 07:10 01/04/25 07:10 01/04/25 07:10
I&O
01/03/25 01/04/25 01/05/25
06:59 06:59 06:59
Intake Total 3520 / 3520 2450 / 2450
Output Total 1900 / 1900 2430 / 2430
Balance 1620 / 1620
Physical Exam
-
General: No Apparent Distress and Cachectic
HEENT: Normocephalic, Atraumatic and Moist Mucous Membranes
Respiratory: Clear to Auscultation
Cardiac: Regular Rhythm and S1/S2; Negative Murmur, Rub or Gallop
GI: Soft, Nondistended, Normal Bowel Sounds, Tender and Other (midline aquacell dressing. SUDHAKAR drain with serosanginous fluid noted); Negative Organomegaly
Rectal: Deferred by Provider
Musculoskeletal: No Clubbing, No Cyanosis and No Edema
Skin: Negative Rash
Neuro: Awake, Alert, Oriented, AO x 3, No Motor Deficits and Nonfocal/Grossly Intact
Psych: Calm
Data Reviewed
-
Total Time Spent with Patient (in minutes): 55
[2025-01-04 11:06] VITALS: BP 129/83
--- NOTE | 2025-01-04 11:38 | CON.ID ---
Consultation
-
Date/Time Consultation Requested: January 04 2025 0800
Date/Time Consultation Performed: January 04, 2025 1139
Requesting Provider: Dr. Michele Maria
Performing Provider: Dr. Eugenia Lilly
Reason for Consultation: Abdominal abscess
Chief Complaint / Past History
Chief Complaint
Abdominal pain and nausea
History of Present Illness
54-year-old female without significant past medical history who developed diffuse abdominal pain on January 01 for which she was hospitalized at [facility]. She reports a CAT scan showed colitis. Initially she was on Zosyn. She had fevers
during the hospital stay. She was seen by GI who suspected viral gastroenteritis. She was hospitalized for 3 days then discharged to home. While at home she was not able to keep liquids and food down. She complains of about abdominal bloating.
She continued to have severe abdominal pain. No diarrhea. She presented to [facility] 01/01. White count of 15.3. CAT scan showed severe distal small bowel obstruction with right lower quadrant complex fluid. NG tube placed. she was
started on Zosyn. On January 02, IR attempted to drain the abdominal fluid but was unsuccessful. Pelvis CAT scan persistent small bowel obstruction, 7.6 cm complex collection in the right lower quadrant. On January 03 she was taken to the OR status
post expiratory laparotomy and found to have ruptured appendicitis status post abdominal washout and serosal repair. Intraoperative culture is pending. Today she reports no gas or bowel movements yet. Pain is localized to the right lower
quadrant. No fever or chills at this time. For the past 7 months, she has been on a semaglutide for weight loss. She has lost 10 pounds since then.
Past History
Additional Past Medical History:
HLD
Allergy History:
lactose Allergy (Verified 01/01/25 11:06)
Unknown
soy Allergy (Verified 01/01/25 11:06)
Unknown
Medications Reviewed: Yes
Current Antibiotics:
Zosyn day 4
Social History
Tobacco: Non-Smoker
Alcohol: None
Drug: None
Family History
Family History: Not Pertinent
Review of Systems
Review of Systems
General: Change in Appetite
HEENT: Negative Sinus Problems or Headache
Cardiovascular: Negative Chest Pain
Respiratory: Negative Dyspnea or Cough
Gasteroenterology: Negative Diarrhea
Genital / Urological: Negative Dysuria or Flank Pain
Endocrine: Weakness
Skin / Hair / Nails: Negative Rash
Neurological: Negative Dizziness
All systems: All other systems were reviewed and were negative
Vital Signs
Temp Pulse Resp BP Pulse Ox
97.9 F 94 16 129/83 98
01/04/25 11:06 01/04/25 11:06 01/04/25 11:06 01/04/25 11:06 01/04/25 11:06
Physical Exam
Physical Exam
Constitutional: No Acute Distress, Comfortable and Cachetic
Head: Other (NGT in place)
Eyes: No Conjunctival Hemorrhage and Sclera Anicteric
Cardiovascular: Regular Rate and S1/S2
Pulmonary: Clear
Gastrointestinal: Soft, Tender (RLQ), Non Distended and Other (no bowel sounds; SUDHAKAR drain thin pink-tinged fluid)
Genito-Urinary: Negative CVA Tenderness
Extremities: Negative Edema
Neurological: AO x 3
Lab / Diagnostic Study Results
01/04/25 05:28
01/04/25 05:28
Abs Immat Gran (auto) 0.2 10^3/uL (0-0.05) H 01/02/25 06:14
Absolute Neuts (auto) 16.2 10^3/uL (1.4-6.5) H 01/02/25 06:14
Absolute Lymphs (auto) 1.5 10^3/uL (1.2-3.4) 01/02/25 06:14
Absolute Monos (auto) 0.8 10^3/uL (0.1-0.6) H 01/02/25 06:14
Absolute Basos (auto) 0.1 10^3/uL (0-0.2) 01/02/25 06:14
Immature Gran % 0.9 % (0-0.5) H 01/02/25 06:14
Neutrophils % 86.3 % (42.2-75.2) H 01/02/25 06:14
Lymphocytes % 7.8 % (20.5-51.1) L 01/02/25 06:14
Monocytes % 4.4 % (1.7-9.3) 01/02/25 06:14
Eosinophils % 0.1 % (0-6) 01/02/25 06:14
Basophils % 0.5 % (0-2) 01/02/25 06:14
PT 15.2 Sec (11.4-14.6) H 01/02/25 15:53
INR 1.17 01/02/25 15:53
Lactic Acid 1.0 mmol/L (0.7-2.0) 01/01/25 14:01
Microbiology Results
Micro:
01/03/25 11:19 Anaerobic Culture - Preliminary
Abscess Culture pending. Anaerobic cultures are examined after 3
days incubation. Additional information to follow.
01/02/25 16:51 Blood Culture - Preliminary
Blood/Venous No Growth in 24 hours- Final report to follow
01/02/25 15:53 Blood Culture - Preliminary
Blood/Venous No Growth in 24 hours- Final report to follow
01/03/25 11:19 Wound Culture - Pending
Abscess Gram Stain - Preliminary
01/01/25 CT a/p with IV and po contrast: Findings suspicious for high-grade distal small bowel obstruction with dilated fluid-filled loops of small bowel and markedly limited evaluation of small bowel with only distended stomach and proximal small
bowel opacified with oral contrast as well as marked paucity of fat throughout the abdomen and true pelvis. 'Multicystic' complex predominantly fluid density with air bubbles and thickened periphery in the right lower quadrant measuring 5.7 x 7.3 x
7.6 cm also containing some high high attenuation density. EVALUATION MARKEDLY LIMITED DUE TO PAUCITY OF INTRA-ABDOMINAL FAT AND LACK OF ORAL CONTRAST OPACIFICATION). Findings could represent an abscess (surrounded by loops of bowel) such as a
periappendiceal or other abscess abscess although difficult to confirm. Appendiceal mucocele with superimposed infection and small bowel obstruction also possible. Atypical tumor with possible superimposed infection, less likely intestinal volvulus
are some other differential diagnostic possibilities. Surgical consultation recommended. Few small right lower quadrant mesenteric lymph nodes measuring up to 1.2 cm, cannot differentiate inflammatory/infectious etiology versus malignancy. 0.5 cm
ill-defined low-attenuation right lobe hepatic lesion, too small to characterize.
01/02/[address]: 7.6 cm complex collection in the right lower quadrant, essentially unchanged compared to the CT abdomen/pelvis from 01/01/2025. Leading consideration would be an abscess secondary to perforated appendicitis. A necrotic malignant
mass remains an alternative possibility. Persistent small bowel obstruction. Fibroid uterus.
Assessment / Plan
# Ruptured appendicitis with pelvic abscess
# Distal small bowel obstruction
# Leukocytosis
- 3/2 s/p ex-lap, abscess drainage, abd washout, serosal repair
-Appreciate Colorectal - OR cx pending; gram stain GNR, GPR
- Agree with Zosyn
- Will de-escalate when cx data available.
- Trend wbc.
--- NOTE | 2025-01-04 14:33 | CM ---
Chart reviewed. Met with pt
POD#1 Exploratory laparotomy with drainage of right lower quadrant intraabdominal abscess, serosal repair, abdominal washout
NPO
NGT, IVF's, IV antibiotics
Following labs/cultures; ID consult
CM will follow for d/c needs
Plan - anticipate home no needs
[2025-01-04 15:38] VITALS: BP 122/76
--- NOTE | 2025-01-04 15:50 | PTCARENOTE ---
pt voided large amount. prv bladder scan was 32. will monitor.
[2025-01-04] MEDS: LOVENOX 30 MG SC (17:10)
[2025-01-04 23:32] VITALS: BP 116/80
[2025-01-04] MEDS: MELATONIN 5 MG PO (23:55)
[2025-01-05] MEDS: ZOSYN 50 IV ×2 (02:41→08:01)
[2025-01-05] MEDS: DILAUDID 1 MG IV (04:53)
[2025-01-05 05:49] VITALS: BMI 19.7
[2025-01-05 07:47] VITALS: BP 132/88
[2025-01-05] MEDS: PROTONIX IV 40 MG IV (08:01)
[2025-01-05] MEDS: NSS (PRESERVATIVE FREE) 10 ML IV (08:01)
[2025-01-05 08:37] LABS: % Basophils 0.3 % (0-2); % Eosinophils 0.4 % (0-6); % Immature Granulocytes 0.6 % (0-0.5); % Lymphocytes 7.2 % (20.5-51.1); % Monocytes 4.5 % (1.7-9.3); Absolute Basophils 0.1 10^3/uL (0-0.2); Absolute Eosinophils 0.1 10^3/uL (0-0.7); Absolute Immature Granulocytes 0.1 10^3/uL (0-0.05); Absolute Lymphocytes 1.2 10^3/uL (1.2-3.4); Absolute Monocytes 0.7 10^3/uL (0.1-0.6); Absolute Neutrophils 14.4 10^3/uL (1.4-6.5); Hematocrit 28.2 % (37.0-47.0); Mean Corp Hgb Conc. 35.5 g/dL (33.0-37.0); Mean Corpuscular Hgb 30.4 pg (27.0-31.0); Mean Corpuscular Volume 85.7 fL (81.0-99.0); Nucleated Red Blood Cells % 0 %; Red Blood Cell Count 3.29 10^6/uL (4.20-5.40); Red Cell Dist. Width 13.2 % (11.5-14.5); White Blood Cell Count 16.6 10^3/uL (4.8-10.8)
[2025-01-05 08:52] LABS: ALT (SGPT) 10 U/L (0-35); AST (SGOT) 15 U/L (14-36); Albumin 2.4 g/dl (3.5-5.0); Alkaline Phosphatase 57 U/L (38-126); Blood Urea Nitrogen 12 mg/dl (7-17); Calcium 7.7 mg/dl (8.4-10.2); Carbon Dioxide 22 mmol/L (22-30); Chloride 106 mmol/L (98-107); Estimated Creatinine Clearance 84 ml/min; Glucose 89 mg/dl (70-99); Potassium 3.7 mmol/L (3.5-5.1); Sodium 138 mmol/L (135-145); Total Bilirubin 0.7 mg/dl (0.2-1.3); Total Protein 4.8 g/dl (6.3-8.2); eGFR > 60.00
[2025-01-05 09:11] LABS: Mean Platelet Volume 9.2 fL (7.4-10.4); Platelet Count 374 10^3/uL (130-400)
[2025-01-05] MEDS: KCL 1020 MEQ IV (09:53)
[2025-01-05] MEDS: DILAUDID 0.5 MG IV ×3 (09:53→19:52)
--- NOTE | 2025-01-05 10:47 | CM ---
CM reviewe chart- ADC>48 hours
POD#2 Exploratory laparotomy with drainage of right lower quadrant intraabdominal abscess, serosal repair, abdominal washout
ID following and pt remains with ngt and drain
CM will continue to follow for dc planning
Discharge Disposition- home, no needs anticipated
--- NOTE | 2025-01-05 11:24 | W.PN.CRS1 ---
Today's Communication / Plan
-
As below
Assessment/Plan
-
POD 2 ex lap with drainage of periappendiceal abscess
AFVSS
WBC 16.6 from 15.8, Hb 10.0 from 11.9, Cr 0.5
�Slight increase in leukocytosis; otherwise asymptomatic, will monitor for now
�Continue n.p.o. with NGT until bowel function
� Continue pain control with Tylenol, Dilaudid as needed
� Continue Lovenox for DVT PPx
� Encourage IS, OOB, ambulate twice daily
� Appreciate hospitalist
Subjective Data
Procedure
01/03/2025- Exploratory laparotomy with drainage of right lower quadrant intraabdominal abscess, serosal repair, abdominal washout
Subjective Data
Date of Service: January 05, 2025
No overnight events.
No N/V. No flatus or BMs. Voiding.
Objective Data
-
Vital Signs
Temp Pulse Resp BP Pulse Ox
98.8 F 103 16 132/88 98
01/05/25 07:47 01/05/25 07:47 01/05/25 07:47 01/05/25 07:47 01/05/25 07:47
Intake & Output
01/04/25 01/05/25 01/06/25
06:59 06:59 06:59
Intake Total 2450 / 2450 3420 / 3420
Output Total 2430 / 2430 1615 / 1615
Balance 20 / 20 1805 / 1805
Intake:
Oral fluids 360 / 360 360 / 360
IV fluids (Total) 1840 / 1840 2000 / 1999
IV piggybacks 250 / 250 1000 / 1000
Amount instilled into GI Tube ( 60 / 60
Total)
[place] Sump 60 / 60
Output:
Drain Output (Total) 760 / 760 315 / 315
Right Lower Abdomen 760 / 760 315 / 315
Gastrointestinal tube output ( 495 / 495 900 / 900
Total)
[place] Sump 495 / 495 900 / 900
Urine, [place] 1175 / 1175 400 / 400
Other:
Number of approximated MODERATE 3
amounts of urine
Lab Results
01/05/25 06:38
01/05/25 06:38
Physical Exam
-
General: No Acute Distress and AOx3
HEENT: Grossly Normal and Other (NGT-900 mL for last 24 hours)
Abdomen: Soft, Distended (Mildly distended), Tender (Appropriately tender near midline), No Guarding, Rebound and Other (SUDHAKAR-315 serous output)
Skin: Warm and Dry
Wound: No Signs of Infection, Dressing in Place (Aquacel with minimal strikethrough) and No Skin Erythema
--- NOTE | 2025-01-05 12:01 | W.PN.HOSP.TC ---
Today's Communication/Plan
-
IVF
IV abx
pt/ot
await for return of bowel function
lovenox
Assessment / Plan
Assessment / Plan
#High-grade distal SBO complicated by Ruptured appendix with abscess
Repeat CT abdomen pelvis completed. Evaluated by IR and surgery.
No safe window for IR guided percutaneous drainage of abscess.
Status post exploratory laparotomy with drainage of right lower quadrant intra-abdominal abscess, serosal repair, abdominal washout.
SUDHAKAR drain placement
Continue with NG tube
Continue with IV fluid KCL +LR
N.p.o.
IV fluids
pain control
PPI
#Sepsis, source intra-abdominal, white count tachycardic respiratory rate-poa
IV antibiotic with Zosyn
Unfortunately no blood cultures were obtained on admission
Follow-up in the wound culture data taken in OR
Follow-up on the blood culture data
Bump in wbc noted.
ID recs
#Hypokalemia
replete prn
DVT ppx-lovenox
PT/OT
Full code
Anticipated Discharge: > 48 hours
Subjective/Interval History
-
Date of Service: January 05, 2025
remains with abd pain
no flatulence
Objective Data
-
Labs:
Laboratory Results
01/05/25
06:38
WBC 16.6 H
Hgb 10.0 L
Hct 28.2 L
Plt Count 374 D
Sodium 138
Potassium 3.7
Chloride 106
Carbon Dioxide 22
BUN 12
Creatinine 0.5 L
Glucose 89
Calcium 7.7 L
Total Bilirubin 0.7
AST 15
ALT 10
Alkaline Phosphatase 57
Vital Signs:
Vital Signs
Temp Pulse Resp BP Pulse Ox
98.8 F 103 16 132/88 98
01/05/25 07:47 01/05/25 07:47 01/05/25 07:47 01/05/25 07:47 01/05/25 07:47
I&O
01/04/25 01/05/25 01/06/25
06:59 06:59 06:59
Intake Total 2450 / 2450 3420 / 3420
Output Total 2430 / 2430 1615 / 1615 110 / 110
Balance 1805 / 180 -110 / -110
Physical Exam
-
General: No Apparent Distress and Cachectic
HEENT: Normocephalic, Atraumatic and Moist Mucous Membranes
Respiratory: Clear to Auscultation
Cardiac: Regular Rhythm and S1/S2; Negative Murmur, Rub or Gallop
GI: Soft, Nondistended, Normal Bowel Sounds, Tender and Other (midline aquacell dressing. SUDHAKAR drain with serosanginous fluid noted); Negative Organomegaly
Rectal: Deferred by Provider
Musculoskeletal: No Clubbing, No Cyanosis and No Edema
Skin: Negative Rash
Neuro: Awake, Alert, Oriented, AO x 3, No Motor Deficits and Nonfocal/Grossly Intact
Psych: Calm
--- NOTE | 2025-01-05 13:47 | W.PN.ID1 ---
Date of Service
Date of Service: January 05, 2025
Today's Communication
Narrow Zosyn to Unasyn 3g IV q6h.
Assessment / Plan
# Ruptured appendicitis with pelvic abscess
# Distal small bowel obstruction
# Leukocytosis
- 3/2 s/p ex-lap, abscess drainage, abd washout, serosal repair
-Appreciate Colorectal - OR cx E. coli, Strep species
-
- Trend wbc.
Chief Complaint
-: Other (Pelvic abscess)
Subjective / Review of Systems
No new complaints. No flatus yet.
Vital Signs / Physical Exam
Vital Signs
Vital Signs
Temp Pulse Resp BP Pulse Ox
98.8 F 103 16 132/88 98
01/05/25 07:47 01/05/25 07:47 01/05/25 07:47 01/05/25 07:47 01/05/25 07:47
Physical Exam
Constitutional: No Acute Distress
Cardiovascular: Regular Rate and S1/S2
Pulmonary: Clear
Gastrointestinal: Soft, Tender (RLQ), Non Distended and Other (No bowel sound. SUDHAKAR drain serous fluid. )
Extremities: Negative Edema
Neurological: AO x 3
Objective Data
Lab Data
Lab Results
01/05/25 06:38
01/05/25 06:38
PT 15.2 Sec (11.4-14.6) H 01/02/25 15:53
INR 1.17 01/02/25 15:53
APTT 28.5 Sec (23.4-35.0) 01/02/25 15:53
Estimated Creat Clear 84 ml/min 01/05/25 06:38
Lactic Acid 1.0 mmol/L (0.7-2.0) 01/01/25 14:01
Total Bilirubin 0.7 mg/dl (0.2-1.3) 01/05/25 06:38
AST 15 U/L (14-36) 01/05/25 06:38
ALT 10 U/L (0-35) 01/05/25 06:38
Alkaline Phosphatase 57 U/L (38-126) 01/05/25 06:38
Most recent labs reviewed.
Micro Results:
01/03/25 11:19 Wound Culture - Preliminary
Abscess Escherichia coli
Streptococcus species
Gram Stain - Preliminary
01/02/25 16:51 Blood Culture - Preliminary
Blood/Venous No Growth in 48 hours- Final report to follow
01/02/25 15:53 Blood Culture - Preliminary
Blood/Venous No Growth in 48 hours- Final report to follow
01/03/25 11:19 Anaerobic Culture - Preliminary
Abscess Culture pending. Anaerobic cultures are examined after 3
days incubation. Additional information to follow.
01/01/25 CT a/p with IV and po contrast: Findings suspicious for high-grade distal small bowel obstruction with dilated fluid-filled loops of small bowel and markedly limited evaluation of small bowel with only distended stomach and proximal small
bowel opacified with oral contrast as well as marked paucity of fat throughout the abdomen and true pelvis. 'Multicystic' complex predominantly fluid density with air bubbles and thickened periphery in the right lower quadrant measuring 5.7 x 7.3 x
7.6 cm also containing some high high attenuation density. EVALUATION MARKEDLY LIMITED DUE TO PAUCITY OF INTRA-ABDOMINAL FAT AND LACK OF ORAL CONTRAST OPACIFICATION). Findings could represent an abscess (surrounded by loops of bowel) such as a
periappendiceal or other abscess abscess although difficult to confirm. Appendiceal mucocele with superimposed infection and small bowel obstruction also possible. Atypical tumor with possible superimposed infection, less likely intestinal volvulus
are some other differential diagnostic possibilities. Surgical consultation recommended. Few small right lower quadrant mesenteric lymph nodes measuring up to 1.2 cm, cannot differentiate inflammatory/infectious etiology versus malignancy. 0.5 cm
ill-defined low-attenuation right lobe hepatic lesion, too small to characterize.
01/02/[address]: 7.6 cm complex collection in the right lower quadrant, essentially unchanged compared to the CT abdomen/pelvis from 01/01/2025. Leading consideration would be an abscess secondary to perforated appendicitis. A necrotic malignant
mass remains an alternative possibility. Persistent small bowel obstruction. Fibroid uterus.
[2025-01-05] MEDS: UNASYN IV ×2 (14:09→19:52)
[2025-01-05 15:32] VITALS: BP 145/90
[2025-01-05] MEDS: LOVENOX 30 MG SC (17:42)
[2025-01-05 23:44] VITALS: BP 135/96
[2025-01-05] MEDS: MELATONIN 5 MG PO (23:48)
[2025-01-06] MEDS: DILAUDID 0.5 MG IV ×2 (00:27→06:19)
[2025-01-06] MEDS: UNASYN IV ×4 (02:32→19:58)
[2025-01-06] MEDS: KCL 1020 MEQ IV ×2 (02:35→16:01)
[2025-01-06 06:00] VITALS: BMI 19.5
[2025-01-06 07:15] VITALS: BP 126/88
[2025-01-06 07:54] LABS: % Basophils 0.4 % (0-2); % Eosinophils 1.8 % (0-6); % Immature Granulocytes 0.6 % (0-0.5); % Lymphocytes 10.4 % (20.5-51.1); % Monocytes 4.7 % (1.7-9.3); % Neutrophils 82.1 % (42.2-75.2); Absolute Basophils 0.1 10^3/uL (0-0.2); Absolute Eosinophils 0.2 10^3/uL (0-0.7); Absolute Immature Granulocytes 0.1 10^3/uL (0-0.05); Absolute Lymphocytes 1.2 10^3/uL (1.2-3.4); Absolute Monocytes 0.5 10^3/uL (0.1-0.6); Absolute Neutrophils 9.2 10^3/uL (1.4-6.5); Hematocrit 26.9 % (37.0-47.0); Hemoglobin 9.5 g/dL (12.0-16.0); Mean Corp Hgb Conc. 35.3 g/dL (33.0-37.0); Mean Corpuscular Hgb 30.3 pg (27.0-31.0); Mean Corpuscular Volume 85.7 fL (81.0-99.0); Mean Platelet Volume 9.4 fL (7.4-10.4); Nucleated Red Blood Cells % 0 %; Platelet Count 358 10^3/uL (130-400); Red Blood Cell Count 3.14 10^6/uL (4.20-5.40); Red Cell Dist. Width 13.3 % (11.5-14.5); White Blood Cell Count 11.2 10^3/uL (4.8-10.8)
[2025-01-06 08:43] LABS: ALT (SGPT) 10 U/L (0-35); AST (SGOT) 15 U/L (14-36); Albumin 2.5 g/dl (3.5-5.0); Alkaline Phosphatase 56 U/L (38-126); Blood Urea Nitrogen 10 mg/dl (7-17); Carbon Dioxide 22 mmol/L (22-30); Chloride 104 mmol/L (98-107); Estimated Creatinine Clearance 84 ml/min; Glucose 91 mg/dl (70-99); Potassium 3.7 mmol/L (3.5-5.1); Sodium 136 mmol/L (135-145); Total Bilirubin 0.9 mg/dl (0.2-1.3); Total Protein 5.1 g/dl (6.3-8.2); eGFR > 60.00
--- NOTE | 2025-01-06 08:49 | W.PN.CRS1 ---
Today's Communication / Plan
-
abdominal xrays
maintain ngt
Assessment/Plan
-
POD 3 ex lap with drainage of periappendiceal abscess
AFVSS
WBC 11.2 (16.6), Hb 9.5 (10.0), Cr 0.5 (0.5)
NGT: 900ml + (nightshift not recorded)
�WBC trending down
- Abdominal xrays this AM given lack of bowel function
�Continue n.p.o. with NGT until bowel function
� Continue pain control with Tylenol, Dilaudid as needed
� Continue Lovenox for DVT PPx
� Encourage IS, OOB, ambulate twice daily
� Appreciate hospitalist
Subjective Data
Procedure
01/03/2025- Exploratory laparotomy with drainage of right lower quadrant intraabdominal abscess, serosal repair, abdominal washout
Subjective Data
Date of Service: January 06, 2025
Patient states she has no gas or bowel movements yet. She denies nausea or vomiting. Her pain is controlled.
Objective Data
-
Vital Signs
Temp Pulse Resp BP Pulse Ox
98.4 F 96 18 126/88 97
01/06/25 07:15 01/06/25 07:15 01/06/25 07:15 01/06/25 07:15 01/06/25 07:15
Intake & Output
01/05/25 01/06/25 01/07/25
06:59 06:59 06:59
Intake Total 3420 / 3420
Output Total 1615 / 1615 290 / 290
Balance 1805 / 1805 -290 / -290
Intake:
Oral fluids 360 / 360
IV fluids (Total) 2000 / 2000
IV piggybacks 1000 / 1000
Amount instilled into GI Tube ( 60 / 60
Total)
[place] Sump 60 / 60
Output:
Drain Output (Total) 315 / 315 290 / 290
Right Lower Abdomen 315 / 315 290 / 290
Gastrointestinal tube output ( 900 / 900
Total)
[place] Sump 900 / 900
Urine, [place] 400 / 400
Other:
Number of approximated MODERATE 3 3
amounts of urine
Lab Results
01/06/25 06:49
01/06/25 06:49
Physical Exam
-
General: No Acute Distress and AOx3
Abdomen: Distended and Non Tender
Skin: Warm and Dry
[2025-01-06] MEDS: NSS (PRESERVATIVE FREE) 10 ML IV (08:56)
[2025-01-06] MEDS: PROTONIX IV 40 MG IV (08:57)
--- NOTE | 2025-01-06 11:08 | W.PN.HOSP.TC ---
Today's Communication/Plan
-
cont IVF w/KCL-K at 3.7
Pain control
KUB
OOB
IV abx
Assessment / Plan
Assessment / Plan
#High-grade distal SBO complicated by Ruptured appendix with abscess
Repeat CT abdomen pelvis completed. Evaluated by IR and surgery.
No safe window for IR guided percutaneous drainage of abscess.
Status post exploratory laparotomy with drainage of right lower quadrant intra-abdominal abscess, serosal repair, abdominal washout.
SUDHAKAR drain placement
Continue with NG tube
Continue with IV fluid KCL +LR. K at 3.7
N.p.o.
pain control
PPI
Abd xray today
CRS following
#Sepsis, source intra-abdominal, white count tachycardic respiratory rate-poa
IV antibiotic with Zosyn and now transitioend to Unasyn
Unfortunately no blood cultures were obtained on admission
Follow-up in the wound culture data taken in OR -polymicrobial growth
Follow-up on the blood culture data-neg so far
Bump in wbc noted.
ID recs
#Hypokalemia
replete prn
DVT ppx-lovenox
PT/OT
Full code
Anticipated Discharge: > 48 hours
Subjective/Interval History
-
Date of Service: January 06, 2025
remains with increase NGT tube output
has not passed flatulence yet
Objective Data
-
Labs:
Laboratory Results
01/06/25
06:49
WBC 11.2 H
Hgb 9.5 L
Hct 26.9 L
Plt Count 358
Sodium 136
Potassium 3.7
Chloride 104
Carbon Dioxide 22
BUN 10
Creatinine 0.5 L
Glucose 91
Calcium 8.0 L
Total Bilirubin 0.9
AST 15
ALT 10
Alkaline Phosphatase 56
Vital Signs:
Vital Signs
Temp Pulse Resp BP Pulse Ox
98.4 F 96 18 126/88 97
01/06/25 07:15 01/06/25 07:15 01/06/25 07:15 01/06/25 07:15 01/06/25 08:45
I&O
01/05/25 01/06/25 01/07/25
06:59 06:59 06:59
Intake Total 3420 / 3420 120 / 120
Output Total 1615 / 1615 290 / 290 40 / 40
Balance 1805 / 1805 -290 / -290 80 / 80
Physical Exam
-
General: No Apparent Distress and Cachectic
HEENT: Normocephalic, Atraumatic and Moist Mucous Membranes
Respiratory: Clear to Auscultation
Cardiac: Regular Rhythm and S1/S2; Negative Murmur, Rub or Gallop
GI: Soft, Nondistended, Normal Bowel Sounds, Tender and Other (midline aquacell dressing. SUDHAKAR drain with serosanginous fluid noted. NGT with biliary drainage in container noted ); Negative Organomegaly
Rectal: Deferred by Provider
Musculoskeletal: No Clubbing, No Cyanosis and No Edema
Skin: Negative Rash
Neuro: Awake, Alert, Oriented, AO x 3, No Motor Deficits and Nonfocal/Grossly Intact
Psych: Calm
[2025-01-06 11:25] VITALS: BP 145/90; PULSE 88; O2SAT 100
[2025-01-06 11:30] VITALS: BP 145/90; PULSE 88; O2SAT 100
--- NOTE | 2025-01-06 11:57 | CM ---
Chart reviewed
POD#3 Exploratory laparotomy with drainage of right lower quadrant intraabdominal abscess, serosal repair, abdominal washout
NGT to intermittent sx
ID following; drain
CM will continue to follow for dc planning
Plan - anticipate home no needs
[2025-01-06] MEDS: TORADOL 10 MG IV ×2 (13:08→20:09)
--- NOTE | 2025-01-06 14:29 | W.PN.ID1 ---
Date of Service
Date of Service: January 06, 2025
Today's Communication
Continue Unasyn
Assessment / Plan
# Ruptured appendicitis with pelvic abscess
# Distal small bowel obstruction
# Leukocytosis trending down
- 3/2 s/p ex-lap, abscess drainage, abd washout, serosal repair
-Appreciate Colorectal - OR cx E. coli, Strep species
- Continue Unasyn.
- Trend wbc.
Chief Complaint
-: Other (Pelvic abscess)
Subjective / Review of Systems
No bowel function yet.
Vital Signs / Physical Exam
Vital Signs
Vital Signs
Temp Pulse Resp BP Pulse Ox
98.4 F 96 18 126/88 97
01/06/25 07:15 01/06/25 07:15 01/06/25 07:15 01/06/25 07:15 01/06/25 08:45
Physical Exam
Constitutional: No Acute Distress
Head: Other (NGT in place)
Cardiovascular: Regular Rate and S1/S2
Pulmonary: Clear
Gastrointestinal: Soft, Tender (mild RLQ), Non Distended and Other (No bowel sounds; SUDHAKAR drain serous fluid)
Extremities: Negative Edema
Neurological: AO x 3
Objective Data
Lab Data
Lab Results
01/06/25 06:49
01/06/25 06:49
PT 15.2 Sec (11.4-14.6) H 01/02/25 15:53
INR 1.17 01/02/25 15:53
APTT 28.5 Sec (23.4-35.0) 01/02/25 15:53
Estimated Creat Clear 84 ml/min 01/06/25 06:49
Lactic Acid 1.0 mmol/L (0.7-2.0) 01/01/25 14:01
Total Bilirubin 0.9 mg/dl (0.2-1.3) 01/06/25 06:49
AST 15 U/L (14-36) 01/06/25 06:49
ALT 10 U/L (0-35) 01/06/25 06:49
Alkaline Phosphatase 56 U/L (38-126) 01/06/25 06:49
Most recent labs reviewed.
Micro Results:
01/03/25 11:19 Anaerobic Culture - Preliminary
Abscess Culture pending. Anaerobic cultures are examined after 3
days incubation. Additional information to follow.
01/02/25 16:51 Blood Culture - Preliminary
Blood/Venous No Growth in 72 hours- Final report to follow
01/02/25 15:53 Blood Culture - Preliminary
Blood/Venous No Growth in 72 hours- Final report to follow
01/03/25 11:19 Wound Culture - Preliminary
Abscess Escherichia coli
Streptococcus species
Gram Stain - Preliminary
01/01/25 CT a/p with IV and po contrast: Findings suspicious for high-grade distal small bowel obstruction with dilated fluid-filled loops of small bowel and markedly limited evaluation of small bowel with only distended stomach and proximal small
bowel opacified with oral contrast as well as marked paucity of fat throughout the abdomen and true pelvis. 'Multicystic' complex predominantly fluid density with air bubbles and thickened periphery in the right lower quadrant measuring 5.7 x 7.3 x
7.6 cm also containing some high high attenuation density. EVALUATION MARKEDLY LIMITED DUE TO PAUCITY OF INTRA-ABDOMINAL FAT AND LACK OF ORAL CONTRAST OPACIFICATION). Findings could represent an abscess (surrounded by loops of bowel) such as a
periappendiceal or other abscess abscess although difficult to confirm. Appendiceal mucocele with superimposed infection and small bowel obstruction also possible. Atypical tumor with possible superimposed infection, less likely intestinal volvulus
are some other differential diagnostic possibilities. Surgical consultation recommended. Few small right lower quadrant mesenteric lymph nodes measuring up to 1.2 cm, cannot differentiate inflammatory/infectious etiology versus malignancy. 0.5 cm
ill-defined low-attenuation right lobe hepatic lesion, too small to characterize.
01/02/[address]: 7.6 cm complex collection in the right lower quadrant, essentially unchanged compared to the CT abdomen/pelvis from 01/01/2025. Leading consideration would be an abscess secondary to perforated appendicitis. A necrotic malignant
mass remains an alternative possibility. Persistent small bowel obstruction. Fibroid uterus.
[2025-01-06 14:50] VITALS: BP 144/93
[2025-01-06] MEDS: LOVENOX 30 MG SC (18:00)
[2025-01-06 23:43] VITALS: BP 117/76
[2025-01-07] MEDS: UNASYN IV ×4 (01:39→19:50)
[2025-01-07] MEDS: KCL 1020 MEQ IV ×2 (05:59→17:57)
[2025-01-07 06:00] VITALS: BMI 19.5
[2025-01-07] MEDS: TORADOL 10 MG IV ×2 (06:00→15:51)
[2025-01-07 06:35] LABS: % Basophils 0.7 % (0-2); % Eosinophils 2.2 % (0-6); % Immature Granulocytes 0.7 % (0-0.5); % Lymphocytes 13.8 % (20.5-51.1); % Monocytes 5.2 % (1.7-9.3); % Neutrophils 77.4 % (42.2-75.2); Absolute Basophils 0.1 10^3/uL (0-0.2); Absolute Eosinophils 0.2 10^3/uL (0-0.7); Absolute Immature Granulocytes 0.1 10^3/uL (0-0.05); Absolute Monocytes 0.4 10^3/uL (0.1-0.6); Absolute Neutrophils 5.5 10^3/uL (1.4-6.5); Hematocrit 26.7 % (37.0-47.0); Hemoglobin 9.4 g/dL (12.0-16.0); Mean Corp Hgb Conc. 35.2 g/dL (33.0-37.0); Mean Corpuscular Hgb 30.3 pg (27.0-31.0); Mean Corpuscular Volume 86.1 fL (81.0-99.0); Mean Platelet Volume 9.3 fL (7.4-10.4); Nucleated Red Blood Cells % 0 %; Platelet Count 346 10^3/uL (130-400); Red Cell Dist. Width 13.2 % (11.5-14.5); White Blood Cell Count 7.2 10^3/uL (4.8-10.8)
[2025-01-07 07:30] VITALS: BP 121/77
[2025-01-07 08:12] LABS: ALT (SGPT) < 10 U/L (0-35); AST (SGOT) 15 U/L (14-36); Albumin 2.5 g/dl (3.5-5.0); Alkaline Phosphatase 51 U/L (38-126); Blood Urea Nitrogen 9 mg/dl (7-17); Calcium 8.2 mg/dl (8.4-10.2); Carbon Dioxide 23 mmol/L (22-30); Chloride 104 mmol/L (98-107); Estimated Creatinine Clearance 84 ml/min; Glucose 92 mg/dl (70-99); Potassium 3.8 mmol/L (3.5-5.1); Sodium 136 mmol/L (135-145); Total Bilirubin 0.7 mg/dl (0.2-1.3); Total Protein 5.1 g/dl (6.3-8.2); eGFR > 60.00
[2025-01-07] MEDS: NSS (PRESERVATIVE FREE) 10 ML IV (08:52)
[2025-01-07] MEDS: PROTONIX IV 40 MG IV (08:52)
--- NOTE | 2025-01-07 10:08 | W.PN.CRS1 ---
Today's Communication / Plan
-
continue ngt
Assessment/Plan
-
POD 4 ex lap with drainage of periappendiceal abscess
AFVSS
WBC WBC 7.2, Hgb 9.4
NGT: 250ml
�WBC trending down
- Maintain NGT until bowel function
�If passes flatus, told patient to notify RN.
� Continue pain control with Tylenol, Dilaudid as needed
� Continue Lovenox for DVT PPx
� Encourage IS, OOB, ambulate twice daily
� Appreciate hospitalist
Subjective Data
Procedure
01/03/2025- Exploratory laparotomy with drainage of right lower quadrant intraabdominal abscess, serosal repair, abdominal washout
Subjective Data
Date of Service: January 07, 2025
Patient states she has had no bowel movements or flatus. Her pain is controlled.
Objective Data
-
Vital Signs
Temp Pulse Resp BP Pulse Ox
98.1 F 88 18 121/77 98
01/07/25 07:30 01/07/25 07:30 01/07/25 07:30 01/07/25 07:30 01/07/25 08:30
Intake & Output
01/06/25 01/07/25 01/08/25
06:59 06:59 06:59
Intake Total 2880 / 2880
Output Total 590 / 590 1030 / 1030 40 / 40
Balance -590 / -590 1850 / 1850 -40 / -40
Intake:
Oral fluids 480 / 480
IV fluids (Total) 1680 / 1680
IV piggybacks 480 / 480
Amount instilled into GI Tube ( 240 / 240
Total)
[place] Sump 240 / 240
Output:
Drain Output (Total) 290 / 290 205 / 205 40 / 40
Right Lower Abdomen 290 / 290 205 / 205 40 / 40
Gastrointestinal tube output ( 300 / 300 825 / 825
Total)
[place] Sump 300 / 300 825 / 825
Other:
Number of approximated MODERATE 3 3 1
amounts of urine
Lab Results
01/07/25 05:31
01/07/25 05:31
Physical Exam
-
General: No Acute Distress and AOx3
Abdomen: Soft, Non Distended and Non Tender
Skin: Warm and Dry
--- NOTE | 2025-01-07 10:51 | W.PN.HOSP.TC ---
Today's Communication/Plan
-
Monitor vital signs
see plan
Pain control
Encourage ambulation
Continue with antibiotics
Continue NG tube
Assessment / Plan
Assessment / Plan
#High-grade distal SBO complicated by Ruptured appendix with abscess
Repeat CT abdomen pelvis completed. Evaluated by IR and surgery.
No safe window for IR guided percutaneous drainage of abscess.
Status post exploratory laparotomy with drainage of right lower quadrant intra-abdominal abscess, serosal repair, abdominal washout.
SUDHAKAR drain placement
Continue with NG tube
Continue with IV fluid KCL +LR. K at 3.7
N.p.o.
pain control
PPI
Abd xray today
CRS following
#Sepsis, source intra-abdominal, white count tachycardic respiratory rate-poa
IV antibiotic with Zosyn and now transitioend to Unasyn
Unfortunately no blood cultures were obtained on admission
Follow-up in the wound culture data taken in OR -polymicrobial growth
Follow-up on the blood culture data-neg so far
ID following
#Hypokalemia
replete prn
DVT ppx-lovenox
PT/OT
Full code
General: No Apparent Distress and Cachectic
HEENT: Normocephalic, Atraumatic and Moist Mucous Membranes
Respiratory: Clear to Auscultation
Cardiac: Regular Rhythm and S1/S2; Negative Murmur, Rub or Gallop
GI: Soft, Nondistended, Normal Bowel Sounds, Tender and Other (midline aquacell dressing. SUDHAKAR drain with serosanginous fluid noted. NGT with biliary drainage in container noted)
Musculoskeletal: No Edema
Skin: Negative Rash
Neuro: Awake, Alert, Oriented, AO x 3, No Motor Deficits and Nonfocal/Grossly Intact
Psych: Calm
Anticipated Discharge: > 48 hours
Subjective/Interval History
-
Date of Service: January 07, 2025
denies nausea
Objective Data
-
Labs:
Laboratory Results
01/07/25
05:31
WBC 7.2
Hgb 9.4 L
Hct 26.7 L
Plt Count 346
Sodium 136
Potassium 3.8
Chloride 104
Carbon Dioxide 23
BUN 9
Creatinine 0.5 L
Glucose 92
Calcium 8.2 L
Total Bilirubin 0.7
AST 15
ALT < 10
Alkaline Phosphatase 51
Vital Signs:
Vital Signs
Temp Pulse Resp BP Pulse Ox
98.1 F 88 18 121/77 98
01/07/25 07:30 01/07/25 07:30 01/07/25 07:30 01/07/25 07:30 01/07/25 08:30
I&O
01/06/25 01/07/25 01/08/25
06:59 06:59 06:59
Intake Total 2880 / 2880
Output Total 590 / 590 1030 / 1030 40 / 40
Balance -590 / -590 1850 / 1850 -40 / -40
--- NOTE | 2025-01-07 11:25 | W.PN.ID1 ---
Date of Service
Date of Service: January 07, 2025
Today's Communication
Continue Unasyn.
Assessment / Plan
# Ruptured appendicitis with pelvic abscess
# Distal small bowel obstruction
# Leukocytosis resolved
- 3/2 s/p ex-lap, abscess drainage, abd washout, serosal repair
-Appreciate Colorectal - OR cx E. coli, Strep species
- Continue Unasyn (d5)
Chief Complaint
-: Other (Pelvic abscess)
Subjective / Review of Systems
Not passing gas yet.
Vital Signs / Physical Exam
Vital Signs
Vital Signs
Temp Pulse Resp BP Pulse Ox
98.1 F 88 18 121/77 98
01/07/25 07:30 01/07/25 07:30 01/07/25 07:30 01/07/25 07:30 01/07/25 08:30
Physical Exam
Constitutional: No Acute Distress
Head: Other (NGT in place)
Cardiovascular: Regular Rate and S1/S2
Pulmonary: Clear
Gastrointestinal: Soft, Tender (mild RLQ), Non Distended and Other (No bowel sounds; SUDHAKAR drain serous fluid)
Extremities: Negative Edema
Neurological: AO x 3
Objective Data
Lab Data
Lab Results
01/07/25 05:31
01/07/25 05:31
PT 15.2 Sec (11.4-14.6) H 01/02/25 15:53
INR 1.17 01/02/25 15:53
APTT 28.5 Sec (23.4-35.0) 01/02/25 15:53
Estimated Creat Clear 84 ml/min 01/07/25 05:31
Lactic Acid 1.0 mmol/L (0.7-2.0) 01/01/25 14:01
Total Bilirubin 0.7 mg/dl (0.2-1.3) 01/07/25 05:31
AST 15 U/L (14-36) 01/07/25 05:31
ALT < 10 U/L (0-35) 01/07/25 05:31
Alkaline Phosphatase 51 U/L (38-126) 01/07/25 05:31
Most recent labs reviewed.
Micro Results:
01/03/25 11:19 Anaerobic Culture - Preliminary
Abscess Culture pending. Anaerobic cultures are examined after 3
days incubation. Additional information to follow.
01/02/25 16:51 Blood Culture - Preliminary
Blood/Venous No Growth in 4 days- Final report to follow
01/02/25 15:53 Blood Culture - Preliminary
Blood/Venous No Growth in 4 days- Final report to follow
01/03/25 11:19 Wound Culture - Preliminary
Abscess Escherichia coli
Streptococcus species
Gram Stain - Preliminary
01/01/25 CT a/p with IV and po contrast: Findings suspicious for high-grade distal small bowel obstruction with dilated fluid-filled loops of small bowel and markedly limited evaluation of small bowel with only distended stomach and proximal small
bowel opacified with oral contrast as well as marked paucity of fat throughout the abdomen and true pelvis. 'Multicystic' complex predominantly fluid density with air bubbles and thickened periphery in the right lower quadrant measuring 5.7 x 7.3 x
7.6 cm also containing some high high attenuation density. EVALUATION MARKEDLY LIMITED DUE TO PAUCITY OF INTRA-ABDOMINAL FAT AND LACK OF ORAL CONTRAST OPACIFICATION). Findings could represent an abscess (surrounded by loops of bowel) such as a
periappendiceal or other abscess abscess although difficult to confirm. Appendiceal mucocele with superimposed infection and small bowel obstruction also possible. Atypical tumor with possible superimposed infection, less likely intestinal volvulus
are some other differential diagnostic possibilities. Surgical consultation recommended. Few small right lower quadrant mesenteric lymph nodes measuring up to 1.2 cm, cannot differentiate inflammatory/infectious etiology versus malignancy. 0.5 cm
ill-defined low-attenuation right lobe hepatic lesion, too small to characterize.
01/02/[address]: 7.6 cm complex collection in the right lower quadrant, essentially unchanged compared to the CT abdomen/pelvis from 01/01/2025. Leading consideration would be an abscess secondary to perforated appendicitis. A necrotic malignant
mass remains an alternative possibility. Persistent small bowel obstruction. Fibroid uterus.
--- NOTE | 2025-01-07 15:19 | PTCARENOTE ---
pt had a soft brownish/green BM. Bailey Lebron made aware and NGT clamped. care ongoing.
--- NOTE | 2025-01-07 15:24 | CM ---
Chart reviewed
Clamping trial, NPO, Antibiotics
Plan - anticipate home no needs
[2025-01-07 15:25] VITALS: BP 146/89
[2025-01-07] MEDS: LOVENOX 30 MG SC (17:56)
[2025-01-07 23:26] VITALS: BP 120/76
[2025-01-08] MEDS: UNASYN IV ×4 (01:20→19:50)
[2025-01-08 06:00] VITALS: BMI 19.4
[2025-01-08 06:29] LABS: % Basophils 0.9 % (0-2); % Eosinophils 1.1 % (0-6); % Immature Granulocytes 0.9 % (0-0.5); % Monocytes 7.7 % (1.7-9.3); % Neutrophils 70.4 % (42.2-75.2); Absolute Basophils 0.1 10^3/uL (0-0.2); Absolute Eosinophils 0.1 10^3/uL (0-0.7); Absolute Immature Granulocytes 0.1 10^3/uL (0-0.05); Absolute Lymphocytes 1.1 10^3/uL (1.2-3.4); Absolute Monocytes 0.4 10^3/uL (0.1-0.6); Hematocrit 26.3 % (37.0-47.0); Hemoglobin 9.5 g/dL (12.0-16.0); Mean Corp Hgb Conc. 36.1 g/dL (33.0-37.0); Mean Corpuscular Hgb 30.5 pg (27.0-31.0); Mean Corpuscular Volume 84.6 fL (81.0-99.0); Mean Platelet Volume 9.4 fL (7.4-10.4); Nucleated Red Blood Cells % 0 %; Platelet Count 407 10^3/uL (130-400); Red Blood Cell Count 3.11 10^6/uL (4.20-5.40); Red Cell Dist. Width 13.1 % (11.5-14.5); White Blood Cell Count 5.7 10^3/uL (4.8-10.8)
[2025-01-08] MEDS: KCL 1020 MEQ IV (07:00)
[2025-01-08 07:04] LABS: ALT (SGPT) 12 U/L (0-35); AST (SGOT) 19 U/L (14-36); Albumin 2.7 g/dl (3.5-5.0); Alkaline Phosphatase 53 U/L (38-126); Blood Urea Nitrogen 4 mg/dl (7-17); Calcium 8.4 mg/dl (8.4-10.2); Carbon Dioxide 22 mmol/L (22-30); Chloride 102 mmol/L (98-107); Estimated Creatinine Clearance 83 ml/min; Glucose 88 mg/dl (70-99); Sodium 135 mmol/L (135-145); Total Bilirubin 0.9 mg/dl (0.2-1.3); Total Protein 5.6 g/dl (6.3-8.2); eGFR > 60.00
[2025-01-08 07:55] VITALS: BP 146/94
[2025-01-08] MEDS: NSS (PRESERVATIVE FREE) 10 ML IV (08:29)
[2025-01-08] MEDS: PROTONIX IV 40 MG IV (08:29)
--- NOTE | 2025-01-08 08:56 | W.PN.CRS1 ---
Today's Communication / Plan
-
ngt clamp trial
Assessment/Plan
-
POD 5 ex lap with drainage of periappendiceal abscess
AFVSS
WBC 5.7, Hgb 9.5
NGT: 500ml
SUDHAKAR: 150ml
�WBC trending down
- NGT clamp trial. If removed, npo with chips and sips.
� Continue pain control with Tylenol, Dilaudid as needed
� Continue Lovenox for DVT PPx
� Encourage IS, OOB, ambulate twice daily
� Appreciate hospitalist
- Keep SUDHAKAR drain in place until discharge
Subjective Data
Procedure
01/03/2025- Exploratory laparotomy with drainage of right lower quadrant intraabdominal abscess, serosal repair, abdominal washout
Subjective Data
Date of Service: January 08, 2025
Patient states she had a bowel movement yesterday. She has not has gas today. She denies pain. She denies nausea or vomiting.
Objective Data
-
Vital Signs
Temp Pulse Resp BP Pulse Ox
98.3 F 86 18 146/94 99
01/08/25 07:55 01/08/25 07:55 01/08/25 07:55 01/08/25 07:55 01/08/25 07:55
Intake & Output
01/07/25 01/08/25 01/09/25
06:59 06:59 06:59
Intake Total 2880 / 2880 1300 / 1390 90 / 90
Output Total 1030 / 1030 300 / 650 350 / 350
Balance 1850 / 1850 1000 / 740 -260 / -260
Intake:
Oral fluids 480 / 480 120 / 120
IV fluids (Total) 1680 / 1680 880 / 880
IV piggybacks 480 / 480 240 / 240
Amount instilled into GI Tube ( 240 / 240 60 / 150 90 / 90
Total)
[place] Sump 240 / 240 60 / 150 90 / 90
Output:
Drain Output (Total) 150 / 150
Right Lower Abdomen 150 / 150
Gastrointestinal tube output ( 825 / 825 150 / 500 350 / 350
Total)
[place] Sump 825 / 825 150 / 500 350 / 350
Other:
Number of approximated MODERATE 3 2
amounts of urine
Lab Results
01/08/25 05:24
01/08/25 05:24
Physical Exam
-
General: No Acute Distress and AOx3
Abdomen: Soft, Non Distended and Tender (mild around incisions)
Skin: Warm and Dry
Incision: Clear, Dry, Intact
--- NOTE | 2025-01-08 11:11 | W.PN.HOSP.TC ---
Today's Communication/Plan
-
monitor vitals
see plan
NGT clam trial today
diet per CRS
encourage ambulation
cw abx
Assessment / Plan
Assessment / Plan
#High-grade distal SBO complicated by Ruptured appendix with abscess
Repeat CT abdomen pelvis completed. Evaluated by IR and surgery.
No safe window for IR guided percutaneous drainage of abscess.
Status post exploratory laparotomy with drainage of right lower quadrant intra-abdominal abscess, serosal repair, abdominal washout.
SUDHAKAR drain placement
Continue with NG tube; clamp trial today
Continue with fluids
N.p.o.
pain control
PPI
CRS following
#Sepsis, source intra-abdominal, white count tachycardic respiratory rate-poa
IV antibiotic with Zosyn and now transitioend to Unasyn
Unfortunately no blood cultures were obtained on admission
Follow-up in the wound culture data taken in OR -polymicrobial growth
Follow-up on the blood culture data-neg so far
ID following
#Hypokalemia
replete prn
DVT ppx-lovenox
PT/OT
Full code
General: No Apparent Distress and Cachectic
HEENT: Normocephalic, Atraumatic and Moist Mucous Membranes
Respiratory: Clear to Auscultation
Cardiac: Regular Rhythm and S1/S2; Negative Murmur, Rub or Gallop
GI: Soft, Nondistended, Normal Bowel Sounds, Tender and Other (midline aquacell dressing. SUDHAKAR drain with serosanginous fluid noted. NGT with biliary drainage in container noted)
Musculoskeletal: No Edema
Skin: Negative Rash
Neuro: Awake, Alert, Oriented, AO x 3, No Motor Deficits and Nonfocal/Grossly Intact
Psych: Calm
Anticipated Discharge: > 48 hours
Subjective/Interval History
-
Date of Service: January 08, 2025
Denies nausea
Objective Data
-
Labs:
Laboratory Results
01/08/25
05:24
WBC 5.7
Hgb 9.5 L
Hct 26.3 L
Plt Count 407 H
Sodium 135
Potassium 4.0
Chloride 102
Carbon Dioxide 22
BUN 4 L
Creatinine 0.4 L
Glucose 88
Calcium 8.4
Total Bilirubin 0.9
AST 19
ALT 12
Alkaline Phosphatase 53
Vital Signs:
Vital Signs
Temp Pulse Resp BP Pulse Ox
98.3 F 86 18 146/94 99
01/08/25 07:55 01/08/25 07:55 01/08/25 07:55 01/08/25 07:55 01/08/25 07:55
I&O
01/07/25 01/08/25 01/09/25
06:59 06:59 06:59
Intake Total 2880 / 2880 1300 / 1390 90 / 90
Output Total 1030 / 1030 300 / 650 350 / 350
Balance 1850 / 1850 1000 / 740 -260 / -260
--- NOTE | 2025-01-08 11:19 | CM ---
Chart reviewed
NGT clamp trial; NPO w/ice chips
Antibiotics cont; ID following
SUDHAKAR drain
Plan - anticipate home no needs
--- NOTE | 2025-01-08 15:50 | PTCARENOTE ---
[employer] 1445 NGT removed- no drainage after 6 hour clamping trial.
[2025-01-08 15:55] VITALS: BP 157/106
--- NOTE | 2025-01-08 16:12 | PTOTSP ---
PATIENT MOBILIZING INDEPENDENTLY ON LEVEL SURFACES WELL ELEVATIONS REQUIRING NO FURTHER ACUTE CARE SKILLED P.T. PATIENT TO CONTINUE AMBULATING IN HALLS AD [facility]. WILL DISCHARGE FROM P.T. SERVICES. RN AWARE.
--- NOTE | 2025-01-08 16:41 | W.PN.ID1 ---
Date of Service
Date of Service: January 08, 2025
Today's Communication
Continue Unasyn.
Assessment / Plan
# Ruptured appendicitis with pelvic abscess
# Distal small bowel obstruction
# Leukocytosis resolved
- 3/2 s/p ex-lap, abscess drainage, abd washout, serosal repair
-Appreciate Colorectal - OR cx E. coli, Strep species
- Continue Unasyn (d6).
When able to take po, will transition to Augmentin 875mg po bid through 01/16.
Chief Complaint
-: Other (Pelvic abscess)
Subjective / Review of Systems
Glad NGT out. Had BM yesterday.
Vital Signs / Physical Exam
Vital Signs
Vital Signs
Temp Pulse Resp BP Pulse Ox
98.3 F 86 18 146/94 99
01/08/25 07:55 01/08/25 07:55 01/08/25 07:55 01/08/25 07:55 01/08/25 07:55
Physical Exam
Constitutional: No Acute Distress and Comfortable
Cardiovascular: Regular Rate and S1/S2
Pulmonary: Clear
Gastrointestinal: Soft, Distended (mild) and Decreased Bowel Sounds
Extremities: Negative Edema
Neurological: AO x 3
Objective Data
Lab Data
Lab Results
01/08/25 05:24
01/08/25 05:24
PT 15.2 Sec (11.4-14.6) H 01/02/25 15:53
INR 1.17 01/02/25 15:53
APTT 28.5 Sec (23.4-35.0) 01/02/25 15:53
Estimated Creat Clear 83 ml/min 01/08/25 05:24
Lactic Acid 1.0 mmol/L (0.7-2.0) 01/01/25 14:01
Total Bilirubin 0.9 mg/dl (0.2-1.3) 01/08/25 05:24
AST 19 U/L (14-36) 01/08/25 05:24
ALT 12 U/L (0-35) 01/08/25 05:24
Alkaline Phosphatase 53 U/L (38-126) 01/08/25 05:24
Most recent labs reviewed.
Micro Results:
01/03/25 11:19 Wound Culture - Final
Abscess Escherichia coli
Streptococcus species
Gram Stain - Final
01/03/25 11:19 Anaerobic Culture - Final
Abscess
01/02/25 16:51 Blood Culture - Final
Blood/Venous No Growth - Final Report
01/02/25 15:53 Blood Culture - Final
Blood/Venous No Growth - Final Report
01/01/25 CT a/p with IV and po contrast: Findings suspicious for high-grade distal small bowel obstruction with dilated fluid-filled loops of small bowel and markedly limited evaluation of small bowel with only distended stomach and proximal small
bowel opacified with oral contrast as well as marked paucity of fat throughout the abdomen and true pelvis. 'Multicystic' complex predominantly fluid density with air bubbles and thickened periphery in the right lower quadrant measuring 5.7 x 7.3 x
7.6 cm also containing some high high attenuation density. EVALUATION MARKEDLY LIMITED DUE TO PAUCITY OF INTRA-ABDOMINAL FAT AND LACK OF ORAL CONTRAST OPACIFICATION). Findings could represent an abscess (surrounded by loops of bowel) such as a
periappendiceal or other abscess abscess although difficult to confirm. Appendiceal mucocele with superimposed infection and small bowel obstruction also possible. Atypical tumor with possible superimposed infection, less likely intestinal volvulus
are some other differential diagnostic possibilities. Surgical consultation recommended. Few small right lower quadrant mesenteric lymph nodes measuring up to 1.2 cm, cannot differentiate inflammatory/infectious etiology versus malignancy. 0.5 cm
ill-defined low-attenuation right lobe hepatic lesion, too small to characterize.
01/02/[address]: 7.6 cm complex collection in the right lower quadrant, essentially unchanged compared to the CT abdomen/pelvis from 01/01/2025. Leading consideration would be an abscess secondary to perforated appendicitis. A necrotic malignant
mass remains an alternative possibility. Persistent small bowel obstruction. Fibroid uterus.
[2025-01-08] MEDS: LOVENOX SC (17:07)
[2025-01-08] MEDS: KCL IV (20:12)
[2025-01-08] MEDS: MELATONIN 5 MG PO (21:37)
[2025-01-08 23:00] VITALS: BP 135/90
[2025-01-09] MEDS: UNASYN IV ×4 (01:18→19:15)
[2025-01-09] MEDS: KCL 1020 MEQ IV (01:45)
[2025-01-09] MEDS: TYLENOL 650 MG PO (01:53)
[2025-01-09 06:00] VITALS: BMI 18.3
[2025-01-09 07:01] LABS: ALT (SGPT) 14 U/L (0-35); AST (SGOT) 25 U/L (14-36); Albumin 2.8 g/dl (3.5-5.0); Alkaline Phosphatase 55 U/L (38-126); Blood Urea Nitrogen 2 mg/dl (7-17); Carbon Dioxide 26 mmol/L (22-30); Chloride 104 mmol/L (98-107); Estimated Creatinine Clearance 79 ml/min; Glucose 105 mg/dl (70-99); Potassium 4.4 mmol/L (3.5-5.1); Sodium 137 mmol/L (135-145); Total Bilirubin 0.7 mg/dl (0.2-1.3); Total Protein 5.7 g/dl (6.3-8.2); eGFR > 60.00
[2025-01-09 08:01] VITALS: BP 118/86
[2025-01-09] MEDS: PROTONIX IV 40 MG IV (08:19)
[2025-01-09] MEDS: NSS (PRESERVATIVE FREE) 10 ML IV (08:19)
--- NOTE | 2025-01-09 11:08 | W.PN.HOSP.TC ---
Today's Communication/Plan
-
diet advancement per gs
abx per ID
Assessment / Plan
Assessment / Plan
# High-grade distal SBO complicated by Ruptured appendix with abscess
Repeat CT abdomen pelvis completed. Evaluated by IR and surgery.
No safe window for IR guided percutaneous drainage of abscess.
Status post exploratory laparotomy with drainage of right lower quadrant intra-abdominal abscess, serosal repair, abdominal washout.
Monitor SUDHAKAR drain output.
NGT removed yesterday
Diet advanced to full liquid today. Patient able to tolerate without any problem
# Sepsis, source intra-abdominal, white count tachycardic respiratory rate-poa
IV antibiotic with Zosyn and now transitioned to Unasyn
Unfortunately no blood cultures were obtained on admission
Follow-up in the wound culture data taken in OR -polymicrobial growth
Follow-up on the blood culture data-neg so far
ID following and help appreciated.
#Hypokalemia
replete prn
#GERD - PPI
DVT ppx-lovenox
Full code
Anticipated Discharge: 24 - 48 hours
Subjective/Interval History
-
Date of Service: January 09, 2025
Resting comfortably in bed
NG tube has been taken out last evening
Objective Data
-
Labs:
Laboratory Results
01/09/25
05:32
WBC Pending
Hgb Pending
Hct Pending
Plt Count Pending
Sodium 137
Potassium 4.4
Chloride 104
Carbon Dioxide 26
BUN 2 L
Creatinine 0.5 L
Glucose 105 H
Calcium 9.0
Total Bilirubin 0.7
AST 25
ALT 14
Alkaline Phosphatase 55
Vital Signs:
Vital Signs
Temp Pulse Resp BP Pulse Ox
98.0 F 96 16 118/86 95
01/09/25 08:01 01/09/25 08:01 01/09/25 08:01 01/09/25 08:01 01/09/25 08:32
I&O
01/08/25 01/09/25 01/10/25
06:59 06:59 07:59
Intake Total 1300 / 1390 3170 / 3170
Output Total 300 / 650 440 / 440
Balance 1000 / 740 2730 / 2730
Review of Systems
-
Respiratory: Reports No Symptoms
Cardiac: Reports No Symptoms
Abdomen/GI: Reports No Symptoms
Physical Exam
-
General: No Apparent Distress and Cachectic
Respiratory: Clear to Auscultation
Cardiac: Regular Rhythm and S1/S2; Negative Murmur
GI: Soft, Nondistended, Normal Bowel Sounds, Tender and Other (midline aquacell dressing. SUDHAKAR drain with serosanginous fluid noted. NGT removed.); Negative Organomegaly
Skin: Negative Rash
Neuro: Awake, Alert, Oriented, AO x 3, No Motor Deficits and Nonfocal/Grossly Intact
Psych: Calm
--- NOTE | 2025-01-09 11:14 | W.PN.GS2 ---
Addendum entered and electronically signed by Lele Sheets MD 01/09/25 11:33:
Patient seen and examined with surgical SAND CUTTER. Agree with documented progress note.
Patient resting comfortably in hospital bed.
Appetite starting to return
No nausea
States that she has not passed gas or had bowel movement yet but tolerating clear liquids well with request for more p.o. intake
AFVSS
ABD: Softly protuberant, minimal incisional tenderness
Midline incision with Aquacel dressing still in place; SUDHAKAR straw-colored serous fluid. Not purulent. Not bloody.
A/P: POD #6 status post ex lap, drainage of right lower quadrant abscess
Full liquid diet
IV fluids
Maintain SUDHAKAR
ID following for antibiotic recommendations
Original Note:
Today's Communication / Plan
-
FLD
Assessment / Plan
-
54 yo female presenting with SBO secondary to abscess from perforated appendicitis. IR unable to drain given location. POD #6 Exploratory laparotomy with drainage of right lower quadrant intraabdominal abscess, serosal repair, abdominal washout
AFVSS
NGT out on 01/09/24, tolerating clears
Await flatus/stool but with some return of appetite
CBC still pending for this am
BMP stable
--Advance to FLD with supplements
--Analgesics prn, added more PO options
--ABX as per ID. OR cx with pansensitive ecoli/strep
--OOB/Ambulate
--D/C IVF
--Change PPI to PO now that NGT has been d/c'd
--VTE ppx with lovenox sq (dose adjusted for patient wt), SCD's
Subjective Data
-
Date of Service: January 09, 2025
Patient seen and examined at bedside with Dr. Sheets. Denies n/v. Tolerating clears. Took tylenol for pain overnight and it was effective. Denies pain currently. Not yet passing flatus but feels like she will soon. Appetite has returned.
Objective Data
-
Intake and Output
01/08/25 01/09/25 01/10/25
06:59 06:59 07:59
Intake Total 1300 / 1390 3170 / 3170
Output Total 300 / 650 440 / 440
Balance 1000 / 740 2730 / 2730
Intake:
Oral fluids 120 / 120 720 / 720
IV fluids (Total) 880 / 880 1880 / 1880
IV piggybacks 240 / 240 480 / 480
Amount instilled into GI Tube ( 60 / 150 90 / 90
Total)
[place] Sump 60 / 150 90 / 90
Output:
Drain Output (Total) 150 / 150 90 / 90
Right Lower Abdomen 150 / 150 90 / 90
Gastrointestinal tube output ( 150 / 500 350 / 350
Total)
[place]e Sump 150 / 500 350 / 350
Other:
Number of approximated MODERATE 2 1
amounts of urine
Number of approximated LARGE 1
amounts of urine
Vital Signs
Temp Pulse Resp BP Pulse Ox
98.0 F 96 16 118/86 95
01/09/25 08:01 01/09/25 08:01 01/09/25 08:01 01/09/25 08:01 01/09/25 08:32
Lab Results
01/09/25 05:32
Calcium 9.0 mg/dl (8.4-10.2) 01/09/25 05:32
Magnesium 2.2 mg/dl (1.6-2.3) 01/04/25 05:28
Total Bilirubin 0.7 mg/dl (0.2-1.3) 01/09/25 05:32
AST 25 U/L (14-36) 01/09/25 05:32
ALT 14 U/L (0-35) 01/09/25 05:32
Alkaline Phosphatase 55 U/L (38-126) 01/09/25 05:32
Total Protein 5.7 g/dl (6.3-8.2) L 01/09/25 05:32
Albumin 2.8 g/dl (3.5-5.0) L 01/09/25 05:32
Physical Exam
-
NAD
ABD soft, mild to mod distention, NT
Incision with intact dressing
SUDHAKAR with serous fluid
[2025-01-09] MEDS: TYLENOL 1000 MG PO ×2 (12:22→19:13)
[2025-01-09 15:42] VITALS: BP 130/94
[2025-01-09] MEDS: LOVENOX SC (17:33)
[2025-01-09 23:02] VITALS: BP 125/90
[2025-01-10] MEDS: UNASYN IV ×2 (03:12→07:49)
[2025-01-10 06:00] VITALS: BMI 18.3
[2025-01-10 07:25] VITALS: BP 128/75
[2025-01-10] MEDS: PROTONIX 40 MG PO (07:50)
--- NOTE | 2025-01-10 10:24 | W.PN.ID1 ---
Date of Service
Date of Service: January 10, 2025
Today's Communication
- Transition to Augmentin 875mg po bid through 01/16.
- ID will sign off.
Assessment / Plan
# Ruptured appendicitis with pelvic abscess
# Distal small bowel obstruction resolving
# Leukocytosis resolved
- 3/2 s/p ex-lap, abscess drainage, abd washout, serosal repair
-Appreciate Colorectal - OR cx E. coli, Strep species
- Transition Unasyn (d7) to Augmentin 875mg po bid through 01/16.
- ID will sign off.
Chief Complaint
-: Other (Pelvic abscess)
Subjective / Review of Systems
Tolerating po except for Ensure.
Vital Signs / Physical Exam
Vital Signs
Vital Signs
Temp Pulse Resp BP Pulse Ox
97.9 F 85 18 125/90 97
01/09/25 23:02 01/09/25 23:02 01/09/25 23:02 01/09/25 23:02 01/09/25 23:02
Physical Exam
Constitutional: No Acute Distress and Comfortable
Cardiovascular: Regular Rate and S1/S2
Pulmonary: Clear
Gastrointestinal: Soft, Non Tender and Decreased Bowel Sounds
Neurological: AO x 3
Objective Data
Lab Data
Lab Results
01/09/25 05:32
01/09/25 05:32
PT 15.2 Sec (11.4-14.6) H 01/02/25 15:53
INR 1.17 01/02/25 15:53
APTT 28.5 Sec (23.4-35.0) 01/02/25 15:53
Estimated Creat Clear 79 ml/min 01/09/25 05:32
Lactic Acid 1.0 mmol/L (0.7-2.0) 01/01/25 14:01
Total Bilirubin 0.7 mg/dl (0.2-1.3) 01/09/25 05:32
AST 25 U/L (14-36) 01/09/25 05:32
ALT 14 U/L (0-35) 01/09/25 05:32
Alkaline Phosphatase 55 U/L (38-126) 01/09/25 05:32
Most recent labs reviewed.
Micro Results:
01/03/25 11:19 Wound Culture - Final
Abscess Escherichia coli
Streptococcus species
Gram Stain - Final
01/03/25 11:19 Anaerobic Culture - Final
Abscess
01/02/25 16:51 Blood Culture - Final
Blood/Venous No Growth - Final Report
01/02/25 15:53 Blood Culture - Final
Blood/Venous No Growth - Final Report
01/01/25 CT a/p with IV and po contrast: Findings suspicious for high-grade distal small bowel obstruction with dilated fluid-filled loops of small bowel and markedly limited evaluation of small bowel with only distended stomach and proximal small
bowel opacified with oral contrast as well as marked paucity of fat throughout the abdomen and true pelvis. 'Multicystic' complex predominantly fluid density with air bubbles and thickened periphery in the right lower quadrant measuring 5.7 x 7.3 x
7.6 cm also containing some high high attenuation density. EVALUATION MARKEDLY LIMITED DUE TO PAUCITY OF INTRA-ABDOMINAL FAT AND LACK OF ORAL CONTRAST OPACIFICATION). Findings could represent an abscess (surrounded by loops of bowel) such as a
periappendiceal or other abscess abscess although difficult to confirm. Appendiceal mucocele with superimposed infection and small bowel obstruction also possible. Atypical tumor with possible superimposed infection, less likely intestinal volvulus
are some other differential diagnostic possibilities. Surgical consultation recommended. Few small right lower quadrant mesenteric lymph nodes measuring up to 1.2 cm, cannot differentiate inflammatory/infectious etiology versus malignancy. 0.5 cm
ill-defined low-attenuation right lobe hepatic lesion, too small to characterize.
01/02/[address]: 7.6 cm complex collection in the right lower quadrant, essentially unchanged compared to the CT abdomen/pelvis from 01/01/2025. Leading consideration would be an abscess secondary to perforated appendicitis. A necrotic malignant
mass remains an alternative possibility. Persistent small bowel obstruction. Fibroid uterus.
[2025-01-10] MEDS: AUGMENTIN 875 MG/125 MG 1 TABLET PO ×2 (10:25→20:57)
[2025-01-10] MEDS: TYLENOL 1000 MG PO (11:25)
--- NOTE | 2025-01-10 11:43 | W.PN.GS2 ---
Addendum entered and electronically signed by Lele Sheets MD 01/10/25 11:52:
Patient seen and examined with surgical CHAIRLIFT OPERATOR. Agree with documented progress note
Overall patient is feeling well and improving each day.
Occasional gas cramps/digestive cramps but no significant pains.
No nausea tolerating full liquids
AFVSS
NAD AAOx3
ABD: Soft, nondistended, tenderness around incision. Incision dressing removed. Skin edges approximated with aaron. No erythema, no drainage.
SUDHAKAR with light serous fluid
A/P: Low residue diet with Ensure clear
ID managing antibiotics
Anticipating probable discharge in 24 hours if continues to tolerate dietary advancement
Original Note:
Today's Communication / Plan
-
Advance diet
Assessment / Plan
-
54 yo female presenting with SBO secondary to abscess from perforated appendicitis. IR unable to drain given location. POD #6 Exploratory laparotomy with drainage of right lower quadrant intraabdominal abscess, serosal repair, abdominal washout
AFVSS
NGT out on 01/09/24, tolerating fulls
+flatus/stools
--Advance to LRD with ensure clear. She is a vegetarian with lactose intolerance which does limit protein options
--Analgesics prn, added more PO options
--ABX as per ID, changed to PO
--OOB/Ambulate
--PO meds
--VTE ppx with lovenox sq (dose adjusted for patient wt), SCD's
Subjective Data
-
Date of Service: January 10, 2025
Patient seen and examined at bedside with Dr. Sheets. Denies n/v. Passing flatus with 2 bm's yesterday. Pain continues to improve but having occasional waves of cramping pain. Tolerating fulls.
Objective Data
-
Intake and Output
01/09/25 01/10/25 01/11/25
05:59 06:59 06:59
Intake Total
Output Total
Balance
Intake:
Oral fluids
IV fluids (Total)
IV piggybacks
Amount instilled into GI Tube (
Total)
[place] Sump
Output:
Drain Output (Total)
Right Lower Abdomen
Gastrointestinal tube output (
Total)
[place] Sump
Other:
Number of approximated MODERATE
amounts of urine
Number of approximated LARGE
amounts of urine
Vital Signs
Temp Pulse Resp BP Pulse Ox
97.9 F 85 18 125/90 97
01/09/25 23:02 01/09/25 23:02 01/09/25 23:02 01/09/25 23:02 01/09/25 23:02
Lab Results
01/09/25 05:32
01/09/25 05:32
Calcium 9.0 mg/dl (8.4-10.2) 01/09/25 05:32
Magnesium 2.2 mg/dl (1.6-2.3) 01/04/25 05:28
Total Bilirubin 0.7 mg/dl (0.2-1.3) 01/09/25 05:32
AST 25 U/L (14-36) 01/09/25 05:32
ALT 14 U/L (0-35) 01/09/25 05:32
Alkaline Phosphatase 55 U/L (38-126) 01/09/25 05:32
Total Protein 5.7 g/dl (6.3-8.2) L 01/09/25 05:32
Albumin 2.8 g/dl (3.5-5.0) L 01/09/25 05:32
Physical Exam
-
NAD
ABD soft, mild distention, NT
Incision with intact aaron, no drainage
SUDHAKAR with clear serous fluid
--- NOTE | 2025-01-10 12:02 | W.PN.HOSP.TC ---
Today's Communication/Plan
-
diet per GS
discharge today vs tomorrow
Assessment / Plan
Assessment / Plan
# High-grade distal SBO complicated by Ruptured appendix with abscess
Repeat CT abdomen pelvis completed. Evaluated by IR and surgery.
No safe window for IR guided percutaneous drainage of abscess.
Status post exploratory laparotomy with drainage of right lower quadrant intra-abdominal abscess, serosal repair, abdominal washout.
Monitor SUDHAKAR drain output.
NGT removed on 01/08
Diet advanced to full liquid. Patient able to tolerate without any problem
# Sepsis, source intra-abdominal, white count tachycardic respiratory rate-poa
Unfortunately no blood cultures were obtained on admission
Follow-up in the wound culture data taken in OR -polymicrobial growth
Follow-up on the blood culture data-neg so far
ID following and help appreciated.
IV unasyn changed to oral Augmentin
#Hypokalemia
replete prn
#GERD - PPI
DVT ppx-lovenox
Full code
Anticipated Discharge: Within 24 hours
Subjective/Interval History
-
Date of Service: January 10, 2025
no abd pain/nausea/vomiting
soft BM
Objective Data
-
Vital Signs:
Vital Signs
Temp Pulse Resp BP Pulse Ox
97.9 F 85 18 125/90 97
01/09/25 23:02 01/09/25 23:02 01/09/25 23:02 01/09/25 23:02 01/09/25 23:02
I&O
01/09/25 01/10/25 01/11/25
05:59 06:59 06:59
Intake Total
Output Total
Balance
Review of Systems
-
Respiratory: Reports No Symptoms
Cardiac: Reports No Symptoms
Abdomen/GI: Reports No Symptoms
[2025-01-10 15:12] VITALS: BP 117/88
[2025-01-10] MEDS: LOVENOX SC (17:00)
[2025-01-10] MEDS: ULTRAM 50 MG PO (17:38)
[2025-01-10 23:03] VITALS: BP 118/81
[2025-01-11 06:00] VITALS: BMI 18.3
[2025-01-11 07:20] VITALS: BP 121/88
[2025-01-11] MEDS: AUGMENTIN 875 MG/125 MG 1 TABLET PO (08:42)
[2025-01-11] MEDS: PROTONIX 40 MG PO (08:42)
[2025-01-11] MEDS: TYLENOL 1000 MG PO (09:25)
--- NOTE | 2025-01-11 10:36 | CM ---
Chart reviewed; met with pt
D/c today
Reports will have ride home
Plan - home no needs
--- NOTE | 2025-01-11 11:29 | W.PN.CRS1 ---
Today's Communication / Plan
-
ok for d/c from our perspective
iesha drain removed
Assessment/Plan
-
POD 6 ex lap with drainage of periappendiceal abscess
AFVSS
IESHA: 40ml, serous
�Tolerating low residue diet
-IESHA drain removed at bedside
� Continue pain control with Tylenol, Dilaudid as needed
� Continue Lovenox for DVT PPx
� Encourage IS, OOB, ambulate twice daily
� Appreciate hospitalist
- Okay for d/c from our perspective. Discharge instructions discussed with patient. Aaron will be removed in the office in [address] Savage. Continue low residue diet.
Subjective Data
Procedure
01/03/2025- Exploratory laparotomy with drainage of right lower quadrant intraabdominal abscess, serosal repair, abdominal washout
Subjective Data
Date of Service: January 11, 2025
Patient states she feels well. She has flatus. Her last BM was two days ago. She has no complaints.
Objective Data
-
Vital Signs
Temp Pulse Resp BP Pulse Ox
98.3 F 87 18 121/88 98
01/11/25 07:20 01/11/25 07:20 01/11/25 07:20 01/11/25 07:20 01/11/25 08:30
Intake & Output
01/10/25 01/11/25 01/12/25
06:59 06:59 06:59
Intake Total 960 / 960
Output Total 40 / 40
Balance 920 / 920
Intake:
Oral fluids 840 / 840
IV fluids (Total)
IV piggybacks 120 / 120
Output:
Drain Output (Total) 40 / 40
Right Lower Abdomen 40 / 40
Other:
Number of approximated MODERATE 3
amounts of urine
Number of approximated LARGE
amounts of urine
Lab Results
01/09/25 05:32
01/09/25 05:32
Physical Exam
-
General: No Acute Distress and AOx3
Abdomen: Soft, Non Distended, Non Tender and Other (aaron in place, IESHA drain serous)
Skin: Warm and Dry
Incision: Clear, Dry, Intact
--- NOTE | 2025-01-11 11:57 | W.PN.HOSP.TC ---
Today's Communication/Plan
-
dc home
po abx
Assessment / Plan
Assessment / Plan
# High-grade distal SBO complicated by Ruptured appendix with abscess
Repeat CT abdomen pelvis completed. Evaluated by IR and surgery.
No safe window for IR guided percutaneous drainage of abscess.
Status post exploratory laparotomy with drainage of right lower quadrant intra-abdominal abscess, serosal repair, abdominal washout.
Monitor SUDHAKAR drain output.
NGT removed on 01/08
SUDHAKAR drain removed. Tolerating diet. Patient able to tolerate without any problem
# Sepsis, source intra-abdominal, white count tachycardic respiratory rate-poa
Unfortunately no blood cultures were obtained on admission
Follow-up in the wound culture data taken in OR -polymicrobial growth
Follow-up on the blood culture data-neg so far
ID following and help appreciated.
IV unasyn changed to oral Augmentin till 01/16.
#Hypokalemia
replete prn
#GERD - PPI
DVT ppx-lovenox
Full code
More than 30 minutes spent in discharge including
Final examination of the patient
Summarizing hospital stay
Instructions for continuing care to all relevant caregivers
Preparation of discharge records, prescriptions, and referral forms
Total time spent (in minutes): 52
Anticipated Discharge: Today
Subjective/Interval History
-
Date of Service: January 11, 2025
tolerating po diet
Objective Data
-
Vital Signs:
Vital Signs
Temp Pulse Resp BP Pulse Ox
98.3 F 87 18 121/88 98
01/11/25 07:20 01/11/25 07:20 01/11/25 07:20 01/11/25 07:20 01/11/25 08:30
I&O
01/10/25 01/11/25 01/12/25
06:59 06:59 06:59
Intake Total 960 / 960
Output Total 40 / 40
Balance 920 / 920
Physical Exam
-
General: No Apparent Distress and Cachectic
Respiratory: Clear to Auscultation
Cardiac: Regular Rhythm and S1/S2; Negative Murmur
GI: Soft, Nondistended, Normal Bowel Sounds, Tender and Other (midline aquacell dressing. NGT removed.); Negative Organomegaly
Skin: Negative Rash
Neuro: Awake, Alert, Oriented, AO x 3, No Motor Deficits and Nonfocal/Grossly Intact
Psych: Calm
--- NOTE | 2025-01-11 12:02 | W.DCSUMMARY ---
Discharge Summary
Discharge Data
Date of Admission: 01/01/25
Date of Discharge: 01/11/25
-
Pending Results: No
Hospital Course
54 female no significant past medical history is presenting from home with abdominal pain. Patient was seen by colorectal surgery. Colorectal surgery discussed if any safe window for drain the abscess and he was not. Patient underwent to the
operating room on 01/03/2025 when she was found to have intra-abdominal abscess ruptured appendicitis. Exploratory laparotomy with drainage of right lower quadrant intraabdominal abscess, serosal repair, abdominal washout. Operative finding of
Abdominal abscess in RLQ at site of appendix which was perforated and macerated to the extent that no tissue was remaining for true resection. Some very minimal localized fecal contamination near the site of prior appendiceal attachment, serosal
repair preformed. Abdominal washout with placement of 19Fr Ishan drain into the right lower quadrant . Patient was maintained on IV Zosyn. Patient was also evaluated by infectious disease. Patient was kept n.p.o. with NG tube patient with
significant output from the NG tube. Clamping trial was started. NG tube was eventually removed. Patient diet was advanced. IV antibiotics of IV Zosyn was transitioned to Unasyn. Patient was tolerating diet. Patient liquid diet was advanced to
low residue. Patient was passing flatulence and having bowel movements. By infectious disease IV Unasyn will need to be transitioned to p.o. Augmentin. Patient pain was intermittently controlled with Tylenol and tramadol. Patient was tolerating
diet without any difficulty. No nausea no vomiting. Per surgery patient to be discharged home with outpatient follow-up for postop management.
Discharge Plan
-
Patient Disposition: Home (Routine Discharge)
Discharge Diagnosis/Procedures: High-grade distal small bowel obstruction complicated by Ruptured appendix with abscess
Sepsis,
Status post exploratory laparotomy with drainage of right lower quadrant intra-abdominal abscess, serosal repair, abdominal washout.
Condition: Fair
Diet: Low Residue
Activity: No strenuous activity
Additional Activity: No lifting over 10lbs (gallon of milk)
Driving Restrictions: Not until seen by your Dr
Wound Care: [place] will be removed at your office appointment with Dr. Savage.
Cover former SUDHAKAR drain site with gauze and tape daily and as needed until the wound seals.
Instructions: Low-fiber diet
Referrals:
Gabby Cordova CRNP [Family Provider] - in less than 1 week
Shan Savage MD [Active] - in two weeks
Additional Discharge Medication Instructions:
Tylenol or Ibuprofen as needed for pain. Maximum dose of Tylenol is 4,000mg in 24 hours. Maximum dose of Ibuprofen is 3,200mg in 24 hours.
Prescriptions:
New
tramadol 50 mg Tablet
50 mg PO BIDPRN PRN (Reason: severe pain) Qty: 10 0RF
amoxicillin-pot clavulanate 875-125 mg Tablet
1 tab PO Q12 Qty: 11 0RF
Continued
pantoprazole 40 mg Tablet,Delayed Release (Dr/Ec)
40 mg PO DAILY
magnesium oxide 500 mg magnesium Tablet
1,000 mg PO HS
Discontinued
dicyclomine 20 mg Tablet
20 mg PO QID
Discharge Orders:
Discharge Patient (As Directed); Ordered 01/11/25
Ordered By: Michele Maria
Discharge Date and Time
Discharge Date/Time: 01/11/25 13:28
Print Language: THAI
--- NOTE | 2025-01-11 12:02 | W.[place]-PDMP ---
[place]-PDMP
-
Checked the [place]- Prescription Drug Monitoring Program website, no red flags identified; safe to proceed with prescription.
[2025-01-11 12:55] VITALS: BP 116/78
== END 2025-01-11 13:28 | disposition home or self-care (01) | DRG 853 ==
LOC: 2 SOUTH 20:59
PROVIDERS: Emergency Medicine; Internal Medicine; Physician Assistant; Registered Nurse; ADMITTING PHYSICIAN Internal Medicine; ATTENDING PHYSICIAN Hospitalist; CONSULT PHYSICIAN Surgery; EMERGENCY PHYSICIAN Emergency Medicine; FAMILY PHYSICIAN Nurse Practitioner Primary Care; OTHER PHYSICIAN Internal Medicine Infectious Disease
PROC: 0D9670Z Drainage of Stomach with Drainage Device, Via Natural or Artificial Opening (ICD-10-PCS; 2025-01-01)
PROC: 0D9W00Z Drainage of Peritoneum with Drainage Device, Open Approach (ICD-10-PCS; 2025-01-03)
PROC: 0DQH0ZZ Repair Cecum, Open Approach (ICD-10-PCS; 2025-01-03)
PROC: 0DBW0ZZ Excision of Peritoneum, Open Approach (ICD-10-PCS; 2025-01-03)
PROC: 3E1M38X Irrigation of Peritoneal Cavity using Irrigating Substance, Percutaneous Approach, Diagnostic (ICD-10-PCS; 2025-01-03)
DX: A41.51 Sepsis due to Escherichia coli [E. coli] (principal); K35.33 Acute appendicitis with perforation, localized peritonitis, and gangrene, with abscess; K56.691 Other complete intestinal obstruction; E78.00 Pure hypercholesterolemia, unspecified; D18.00 Hemangioma unspecified site; B95.5 Unspecified streptococcus as the cause of diseases classified elsewhere; E73.9 Lactose intolerance, unspecified; K38.1 Appendicular concretions; K21.9 Gastro-esophageal reflux disease without esophagitis; K29.70 Gastritis, unspecified, without bleeding; D25.2 Subserosal leiomyoma of uterus; R60.9 Edema, unspecified; E87.6 Hypokalemia; Z53.09 Procedure and treatment not carried out because of other contraindication; Z79.85 Long-term (current) use of injectable non-insulin antidiabetic drugs; Z91.018 Allergy to other foods
CPT/HCPCS: 43752; 71045; 72193; 74019; 74177; 76380; 80048; 80053; 83605; 83690; 83735; 85025; 85027; 85610; 85730; 86850; 86900; 86901; 87040; 87070; 87075; 87077; 87186; 87205; 93005; 96361; 96365; 96375; 97116; 97162; 97166; 99152; 99285; Q9967

== ENCOUNTER 2025-02-05 15:23 | Inpatient (IN) | payer OTHER, SELFPAY ==
[2025-02-05 10:49] VITALS: BP 153/95
--- NOTE | 2025-02-05 11:28 | ED.GENMED ---
History of Present Illness
General
Chief Complaint: Abdominal Pain
Time Seen by Provider: 02/05/25 11:00
History of Present Illness
History of Present Illness:
54-year-old female presents to the emergency department for evaluation of severe diffuse abdominal pain that began abruptly this morning. Began shortly after eating a peanut butter and jelly sandwich. Pain is colicky in nature. She is not passing
any flatus. She is 1 month status post ex lap for abdominal washout and lysis of adhesions due to a cecal perforation with resultant small bowel obstruction.
Review of Systems
Review of Systems
Allergies reviewed?: Yes
All Other Systems: ROS reviewed and negative except as documented in HPI and ROS
Phy Exam
Physical Exam
Physical Exam:
GEN: Well appearing, NAD, WDWN
HEENT: Oral mucosa moist, no scleral icterus
Cardiac: Regular rate
Lung: No respiratory distress, no tachypnea
Abdomen: Flat, mild rigidity, moderately tender to palpation
MSK: No gross deformity or injuries
Skin: Good color, no pallor or jaundice, no rashes
Neuro: AO x3, moves all extremities freely
Psych: Calm, cooperative
Course
Orders/Labs/Results
Orders:
Orders
02/05/25 11:28
CT Abd/Pel (IV only)-DH only Urgent
Comment:
Reason For Exam: abd pain, suspect SBO
HYDROmorphone [Dilaudid] 0.5 mg IV NOW STA
Lactated Ringers [Lr] 1,000 ml IV BOLUS
Ondansetron Injectable [Zofran] 4 mg IV NOW STA
02/05/25 11:40
Complete Blood Count/With Diff Urgent
Lactic Acid Q4H
Comment: CANCEL 2nd LACTIC ACID IF 1st LACTIC ACID IS LESS THAN 2
02/05/25 11:46
Comprehensive Metabolic Panel Urgent
02/05/25 11:47
HYDROmorphone [Dilaudid] 0.5 mg IV NOW STA
02/05/25 15:30
Lactic Acid Q4H
Comment: CANCEL 2nd LACTIC ACID IF 1st LACTIC ACID IS LESS THAN 2
Abnormal Lab Results
02/05/25 02/05/25
11:40 11:46
Absolute Neuts (auto) 7.4 H 10^3/uL
(1.4-6.5)
Neutrophils % 81.2 H %
(42.2-75.2)
Lymphocytes % 13.0 L %
(20.5-51.1)
Glucose 136 H mg/dl
(70-99)
Total Bilirubin 1.8 H mg/dl
(0.2-1.3)
02/05/25 11:40
02/05/25 11:46
Vital Signs
Initial and Last Documented VS:
Initial Vital Signs
Temp Pulse Resp BP Pulse Ox
97.4 F 67 24 153/95 100
02/05/25 10:49 02/05/25 10:49 02/05/25 10:49 02/05/25 10:49 02/05/25 10:49
Last Documented Vital Signs
Temp Pulse Resp BP Pulse Ox
97.4 F 67 24 153/95 100
02/05/25 10:49 02/05/25 10:49 02/05/25 10:49 02/05/25 10:49 02/05/25 10:49
MDM/Problems Addressed
MDM/Problems Addressed:
Patient will be admitted to the colorectal surgery service due to adynamic ileus versus partial small bowel obstruction. She was given IV opiates with rapid improvement in symptoms. NG tube not placed as the patient symptom tolerance is quite good
at this time.
*Critical Care Note
Total Time (30-74mins, 75-104mins- exclusive of procedures): Not Applicable
ED Attending Note
-
Portions of this chart may have been created with voice recognition software.� Occasional wrong word or��sound alike� substitutions may have occurred due to the inherent limitations of voice recognition software.
Discharge Plan
Departure
Patient Disposition: Admit
Date of Disposition: 02/05/25
Time of Disposition: 14:49
Admit to: Med/Surg
Presentation/result/management discussed w/ accepting MD/DO: Colorectal
Discharge Problem:
Adynamic ileus
Prescriptions:
No Action
pantoprazole 40 mg Tablet,Delayed Release (Dr/Ec)
40 mg PO DAILY
magnesium oxide 500 mg magnesium Tablet
1,000 mg PO HS
tramadol 50 mg Tablet
50 mg PO BIDPRN PRN (Reason: severe pain) Qty: 10 0RF
amoxicillin-pot clavulanate 875-125 mg Tablet
1 tab PO Q12 Qty: 11 0RF
Referrals:
Shan Savage MD [Family Provider] -
Interventions
Interventions:
*Risk Screen - Suicide Last Done: 02/05/25 10:49
*General Assessment Last Done: 02/05/25 10:49
*Neglect/Abuse Screening Last Done: 02/05/25 10:49
*ED COVID-19 Vaccine History Last Done: 02/05/25 12:20
CE-Frjhzm-Nimmxvmbao Assessment Last Done: 02/05/25 12:21
Discharge Date and Time
Print Language: GEORGIAN
[2025-02-05] MEDS: ZOFRAN 4 MG IV (11:35)
[2025-02-05] MEDS: LR 1000 IV (11:35)
[2025-02-05] MEDS: DILAUDID 0.5 MG IV ×2 (11:35→11:49)
[2025-02-05 11:52] LABS: % Basophils 0.7 % (0-2); % Eosinophils 0.1 % (0-6); % Immature Granulocytes 0.4 % (0-0.5); % Monocytes 4.6 % (1.7-9.3); % Neutrophils 81.2 % (42.2-75.2); Absolute Basophils 0.1 10^3/uL (0-0.2); Absolute Lymphocytes 1.2 10^3/uL (1.2-3.4); Absolute Monocytes 0.4 10^3/uL (0.1-0.6); Absolute Neutrophils 7.4 10^3/uL (1.4-6.5); Hematocrit 37.8 % (37.0-47.0); Hemoglobin 13.4 g/dL (12.0-16.0); Mean Corp Hgb Conc. 35.4 g/dL (33.0-37.0); Mean Corpuscular Volume 84.8 fL (81.0-99.0); Mean Platelet Volume 9.6 fL (7.4-10.4); Nucleated Red Blood Cells % 0 %; Platelet Count 226 10^3/uL (130-400); Red Blood Cell Count 4.46 10^6/uL (4.20-5.40); Red Cell Dist. Width 14.3 % (11.5-14.5); White Blood Cell Count 9.1 10^3/uL (4.8-10.8)
[2025-02-05 12:04] LABS: ALT (SGPT) 19 U/L (0-35); AST (SGOT) 25 U/L (14-36); Albumin 4.1 g/dl (3.5-5.0); Alkaline Phosphatase 64 U/L (38-126); Blood Urea Nitrogen 14 mg/dl (7-17); Calcium 9.7 mg/dl (8.4-10.2); Carbon Dioxide 24 mmol/L (22-30); Chloride 107 mmol/L (98-107); Glucose 136 mg/dl (70-99); Potassium 3.8 mmol/L (3.5-5.1); Sodium 140 mmol/L (135-145); Total Bilirubin 1.8 mg/dl (0.2-1.3); Total Protein 7.5 g/dl (6.3-8.2); eGFR > 60.00
[2025-02-05 14:00] VITALS: BP 125/82
[2025-02-05 15:00] VITALS: BP 140/102
--- NOTE | 2025-02-05 16:37 | CM ---
Patient seen at bedside with sisters also present in ED. Patient stated that she has no DME at home no past need for VN. Patient lives with in a ranch style home and PCP is Dr. Joelle Herrera. [facility]. Patient
plan is for discharge home with no needs. CM will continue to follow for discharge planning needs.
Plan; home with no needs.
[2025-02-05 17:03] VITALS: BMI 18.9
[2025-02-05 17:08] VITALS: BP 140/93
--- NOTE | 2025-02-05 17:20 | HPS.HSE ---
Family Physician
-
Family Physician: Juan David Savage MD
Chief Complaint
-
Abdominal pain
History of Present Illness
54-year-old female known to me after undergoing a laparotomy and drainage of a large appendiceal abscess on 01/03/25. She presented with a high-grade small bowel obstruction and the abscess was not amenable to percutaneous drainage. Her postoperative
course was uncomplicated and she was seen in the office and was doing well. She has a history of constipation and has been taking MiraLax and occasional magnesium. Over the past few days she has had some abdominal discomfort that became worse
earlier today after eating a peanut butter and jelly sandwich. She had diffuse cramping pain but no nausea, vomiting, fevers or chills. Her last bowel movement and flatus was this morning.
In the ED she has remained afebrile and her vital signs are normal. Her WBC is normal. Her abdomen is soft with ? mild distension. No tenderness or tympany. The incision is well-healed. A CT scan of the abdomen and pelvis without oral contrast
reveals mildly dilated fluid-filled loops of small bowel, mostly in the mid small bowel. There is no abscess or free air.
Medical History
Past Medical History
Past Medical History: Reports Hypercholesterolemia
Past Surgical History: Reports Other (as per the HPI)
Social History
Tobacco: Non-smoker
Alcohol: None
Drug: None
Personal:
Living: With Family
Employment: Employed
Family History
Family History: Not pertinent
Allergies / Home Medications
Allergies reflects when Allergies were last updated in [facility].
Home Medications with original date entered in [facility]
Allergy/Medication List:
NKDA
Home medications:
MiraLax 17gm po daily
Rosuvastatin 10mg po daily
Review of Systems
-
A 12 point ROS was completed and negative except as noted: Yes
Physical Exam
Vital Signs
Vital Signs
Temp Pulse Resp BP Pulse Ox
98.7 F 72 18 140/93 99
02/05/25 17:08 02/05/25 17:08 02/05/25 17:08 02/05/25 17:08 02/05/25 17:08
Physical Exam
General: Well Developed, Well Nourished and No Apparent Distress
HEENT: Anicteric
Respiratory: Clear
Cardiac: Regular Rhythm
GI: Soft, Non Tender, Distended (minimal) and No Hernias
Genito-urinary: No costovertebral tender
Musculoskeletal: No Edema
Neuro: Awake and Alert
Laboratory Results
-
02/05/25 11:40
02/05/25 11:46
Laboratory Results
Lactic Acid Cancelled 02/05/25 15:30
Total Bilirubin 1.8 mg/dl (0.2-1.3) H 02/05/25 11:46
AST 25 U/L (14-36) 02/05/25 11:46
ALT 19 U/L (0-35) 02/05/25 11:46
Alkaline Phosphatase 64 U/L (38-126) 02/05/25 11:46
Data Reviewed
-
CT Scan: Image Personally Visualized and interpreted, Report Reviewed by me, Discussed with Patient and Discussed with Family
Lab Data: Labs Reviewed by me, Discussed with Patient and Discussed with Family
Impression/Plan
-
IMPRESSION: Ileus vs early partial small bowel obstruction
PLAN: I reviewed the current findings with the patient and her family. There is no indication for surgery at this time. The plan is to begin clear liquids and advance as tolerated. If unable to tolerate food or pain develops, will repeat the CT with
contrast. All questions answered.
[2025-02-05] MEDS: TORADOL 15 MG IV (21:10)
[2025-02-05 23:32] VITALS: BP 105/66
[2025-02-06] MEDS: DILAUDID 0.5 MG IV (02:32)
[2025-02-06 07:40] VITALS: BP 112/74
[2025-02-06] MEDS: CRESTOR 10 MG PO (07:42)
[2025-02-06 08:01] LABS: % Basophils 0.9 % (0-2); % Eosinophils 0.5 % (0-6); % Immature Granulocytes 0.2 % (0-0.5); % Monocytes 6.2 % (1.7-9.3); % Neutrophils 64.2 % (42.2-75.2); Absolute Basophils 0.1 10^3/uL (0-0.2); Absolute Lymphocytes 1.6 10^3/uL (1.2-3.4); Absolute Monocytes 0.4 10^3/uL (0.1-0.6); Absolute Neutrophils 3.7 10^3/uL (1.4-6.5); Hemoglobin 12.2 g/dL (12.0-16.0); Mean Corp Hgb Conc. 34.9 g/dL (33.0-37.0); Mean Corpuscular Hgb 30.3 pg (27.0-31.0); Mean Corpuscular Volume 86.8 fL (81.0-99.0); Mean Platelet Volume 10.3 fL (7.4-10.4); Nucleated Red Blood Cells % 0 %; Platelet Count 217 10^3/uL (130-400); Red Blood Cell Count 4.03 10^6/uL (4.20-5.40); Red Cell Dist. Width 14.2 % (11.5-14.5); White Blood Cell Count 5.8 10^3/uL (4.8-10.8)
[2025-02-06 08:09] LABS: Blood Urea Nitrogen 10 mg/dl (7-17); Calcium 9.6 mg/dl (8.4-10.2); Carbon Dioxide 22 mmol/L (22-30); Chloride 108 mmol/L (98-107); Estimated Creatinine Clearance 69 ml/min; Glucose 92 mg/dl (70-99); Potassium 4.2 mmol/L (3.5-5.1); Sodium 139 mmol/L (135-145); eGFR > 60.00
--- NOTE | 2025-02-06 14:39 | W.PN.CRS1 ---
Today's Communication / Plan
-
ADAT
Assessment/Plan
-
54 yo female with h/o laparotomy and drainage of a large appendiceal abscess on 01/03/25. Her postoperative course was uncomplicated and she was seen in the office and was doing well presenting with abdominal pain
CT imaging with likely pSBO vs adynamic ileus, limited by lack of PO contrast
AFVSS
Tolerating clears although some pain after dinner, currently resolved
--Full liquid diet and advance as tolerated to LRD
--Analgesics prn
--May need PO contrast study if she does not continue to improve
Subjective Data
Subjective Data
Date of Service: February 06, 2025
Patient seen and examined at bedside with Dr. Cadena. Denies n/v. Pain overnight several hours after dinner which she felt was gas related. She has passed flatus x1 and burped x1, no bm's. Currently without pain.
Objective Data
-
Vital Signs
Temp Pulse Resp BP Pulse Ox
97.9 F 63 17 112/74 100
02/06/25 07:40 02/06/25 07:40 02/06/25 07:40 02/06/25 07:40 02/06/25 07:40
Intake & Output
02/05/25 02/06/25 02/07/25
06:59 06:59 06:59
Intake Total 480 / 480
Balance 480 / 480
Intake:
Oral fluids 480 / 480
Other:
Number of approximated MODERATE 2
amounts of urine
Lab Results
02/06/25 07:07
02/06/25 07:07
Physical Exam
-
General: No Acute Distress
HEENT: Grossly Normal
Abdomen: Soft, Non Distended and Non Tender
Incision: Other (healing well)
[2025-02-06 15:24] VITALS: BP 121/82
[2025-02-06] MEDS: TYLENOL 1000 MG PO (21:10)
[2025-02-06 21:32] LABS: COVID-19 Antigen Negative (Negative)
[2025-02-06 23:31] VITALS: BP 97/61
[2025-02-07 07:37] VITALS: BP 123/90
[2025-02-07] MEDS: TYLENOL 1000 MG PO (07:40)
[2025-02-07] MEDS: CRESTOR 10 MG PO (07:44)
[2025-02-07] MEDS: MIRALAX 17 GRAMS PO (11:20)
[2025-02-07 14:15] VITALS: BP 128/87
--- NOTE | 2025-02-08 11:09 | W.DS.TRANS ---
Addendum entered and electronically signed by BARBIE Santana 02/08/25 12:56:
dictated #[id number]
Original Note:
DC Summary - Personal Chef
-
Discharge Instructions:
Discharge Diagnosis/Procedures Partial small bowel obstruction vs ileus
Diet Low Fiber
Additional Diets Eat small, low fiber foods as tolerated.
Increase your dietary intake as your bowel
function returns to baseline
Activity No restrictions
Bathing Restrictions OK to Shower
Instructions:
Stand-Alone Forms:
Changes to Home Medications: No
Discharge Medications:
DC Medications w/original date entered in [facility]
polyethylene glycol 3350 17 gram oral powder packet (Miralax) 17 g PO DAILYPRN PRN abd pain 02/05/25
rosuvastatin 10 mg tablet 10 mg PO DAILY High Cholesterol 02/05/25
Home Medication Changes
Pending Results: No
== END 2025-02-07 15:00 | disposition home or self-care (01) | DRG 390 ==
LOC: 3 WEST ACU 15:23
PROVIDERS: Physician Assistant; Registered Nurse; ADMITTING PHYSICIAN Surgery; EMERGENCY PHYSICIAN Emergency Medicine; FAMILY PHYSICIAN Surgery
DX: K56.0 Paralytic ileus (principal); K56.600 Partial intestinal obstruction, unspecified as to cause; E78.00 Pure hypercholesterolemia, unspecified; Z11.52 Encounter for screening for COVID-19
CPT/HCPCS: 74177; 80048; 80053; 83605; 85025; 87502; 87811; 96361; 96374; 96375; 96376; 99284; Q9967